=== PATIENT | female | born 1945 | race Two or more races ===

== ENCOUNTER 2025-01-08 06:20 | Inpatient (IN) | payer MEDICARE, OTHER, SELFPAY ==
[2024-12-29 09:21] VITALS: BMI 35.7
[2024-12-29 10:10] LABS: Hematocrit 46.0 % (37.0-47.0); Hemoglobin 14.4 g/dL (12.0-16.0); Mean Corp Hgb Conc. 31.3 g/dL (33.0-37.0); Mean Corpuscular Volume 85.2 fL (81.0-99.0); Nucleated Red Blood Cells % 0 %; Platelet Count 202 10^3/uL (130-400); Red Cell Dist. Width 16.0 % (11.5-14.5)
[2024-12-29 10:23] LABS: INR 0.93; PT 12.8 Sec (11.4-14.6)
[2024-12-29 10:25] LABS: APTT 27.4 Sec (23.4-35.0)
[2024-12-29 10:36] LABS: Blood Urea Nitrogen 30 mg/dl (7-17); Calcium 9.4 mg/dl (8.4-10.2); Carbon Dioxide 24 mmol/L (22-30); Chloride 105 mmol/L (98-107); Estimated Creatinine Clearance 39 ml/min; Glucose 94 mg/dl (70-99); Potassium 5.3 mmol/L (3.5-5.1); Sodium 138 mmol/L (135-145); eGFR 51.43
--- NOTE | 2025-01-03 13:24 | PTCARENOTE ---
Abn Lab, Creatinine 1.1, Jaylin at Dr Sanchez's office made aware.
[2025-01-08] VITALS (13 sets, daily range): BP systolic 0–175; BP diastolic 54–100; BMI 35.4
--- NOTE | 2025-01-08 07:11 | HP.FOC2 ---
Focused History & Physical
Chief Complaint
HPI:
Chief Complaint: Peripheral arterial disease, claudication
HPI / Indication for Planned Procedure: This is 79-year-old female with significant past medical history for peripheral arterial disease, COPD, diabetes, blind in right eye, incontinence, and hypertension who presents to [facility] for scheduled RIGHT common femoral endarterectomy, profundoplasty, endarterectomized SFA versus vein for patch, and prophylactic sartorius muscle flap with Dr. Jeyson Sanchez III. Patient denies recent illness, trauma, or hospitalization.
Denies cough, chills, fever, vomiting, abdominal pain, shortness of breath, chest pain, loose stool, and recent medication changes. Endorses she is at baseline health.
Relevant Past Medical History: Other (peripheral arterial disease, COPD, diabetes, blind in right eye, incontinence, and hypertension)
Relevant Social History: Negative (Former smoker)
Relevant Past Surgical History: Positive for (Aortogram, right knee surgery, multiple back surgeries, gallbladder surgery)
Review of Systems
Review of Pertinent Systems: All Systems Negative
Medication
See Medication form for detailed medications: Yes
Medication List (including Herbals & OTC):
cilostazol 100 mg tablet 100 mg PO BID 12/27/24
gabapentin 300 mg capsule 300 mg PO BID 12/27/24
glimepiride 2 mg tablet 2 mg PO DAILY 12/27/24
metformin 1,000 mg tablet 1,000 mg PO BIDWMEAL 12/27/24
montelukast 10 mg tablet 10 mg PO DAILY 12/27/24
prednisolone acetate (PF) 1 % eye drops,suspension 1 drp RIGHT EYE Q48H 12/27/24
valsartan 40 mg tablet 40 mg PO DAILY 12/27/24
aspirin 81 mg chewable tablet 81 mg PO DAILY 01/08/25
brimonidine 0.2 % eye drops 1 drp ophthalmic (eye) BID 01/08/25
empagliflozin 25 mg-linagliptin 5 mg tablet (Glyxambi) 1 tab PO DAILY 01/08/25
meclizine 12.5 mg tablet 12.5 mg PO TID 01/08/25
Medications Reviewed: Yes
Allergies and Reactions
Patient has Allergies: Yes
Noted Allergies and Reactions:
Allergy/AdvReac Type Severity Reaction Status Date / Time
codeine Allergy Severe Verified 01/08/25 06:33
Nausea/vomiting/dizziness
Pertinent Physical Exam
All Other Systems: Negative
Head/Neck: Normal
Lungs: Normal (Bilateral lungs clear to auscultation)
Heart: Normal (No murmurs, RRR)
Abdomen: Normal (Nontender nondistended, rotund)
Extremities: Other (Bilateral radial pulse +2)
Neurological: Normal
Diagnosis / Assessment
Assessment: 79-year-old female with peripheral arterial disease and claudication
Plan / Procedure
Plan: Will proceed with scheduled right common femoral endarterectomy with Dr. Jeyson Sanchez III
[2025-01-08] MEDS: BACTROBAN NASAL 1 GRAM NASAL (07:13)
[2025-01-08] MEDS: NSS 500 IV (07:14)
[2025-01-08] MEDS: PERIDEX 0.12% ORAL RINSE 15 ML PO (07:14)
[2025-01-08 07:17] LABS: Glucose - Point of Care 137 mg/dl (70-99)
--- NOTE | 2025-01-08 07:17 | W.SUR.PREOP ---
Pre-Operative Surgical Note
-
I have examined this patient prior to the performance of the scheduled procedure.
The patient's condition is unchanged from the time of the current History and
Physical and the patient is able to undergo the scheduled procedure.
[2025-01-08 09:11] LABS: ACT-LR - POC 351 Seconds (116-155)
[2025-01-08 09:18] LABS: Glucose - Point of Care 144 mg/dl (70-99)
[2025-01-08 10:05] LABS: ACT-LR - POC 266 Seconds (116-155)
[2025-01-08 10:12] LABS: Glucose - Point of Care 180 mg/dl (70-99)
--- NOTE | 2025-01-08 11:22 | OR.RPT ---
Operative Report
Operative Report
Date of Operation: 01/08/2025
Pre Op Diagnosis: Debilitating right lower extremity claudication
Post Op Diagnosis: Debilitating right lower extremity claudication
Procedure:
1. Right common femoral endarterectomy and profunda femoral artery endarterectomy with patch angioplasty using endarterectomized superficial femoral artery
2. Rotational sartorius muscle flap coverage
Surgeon: Jeyson Sanchez III, MD
Business Intelligence Manager: Lizbet Boo MD PGY-4
Anesthesia: General
Complications: None
Estimated Blood Loss: 50 cc
History and Indications for Procedure: 79-year-old obese female with debilitating right lower extremity claudication. Preoperative cross-sectional imaging demonstrated heavily calcified occlusive disease in the right common femoral artery, proximal
profundofemoral artery. She has a chronically occluded superficial femoral artery on the right. She provided a history of multiple previous surgical site infections and therefore I recommended that we minimize the risk of serious infection from
this procedure by using endarterectomized superficial femoral artery along with prophylactic sartorius muscle flap coverage.
Procedure in Detail: Tamar Enciso was correctly identified and placed supine on the operating table. Using ultrasound guidance we identified the right common femoral artery, femoral bifurcation and proximal superficial femoral artery in the
right groin. An appropriate incision was marked at the skin level. After adequate induction of anesthesia, the abdomen, pelvis, right groin and thigh were prepped and draped in usual sterile fashion. Preoperative antibiotics were administered. A
time-out procedure was performed with the nursing and anesthesia staff confirming the patient's identity as well as the nature and laterality of the procedure. I made a vertical incision over the right groin. Electrocautery was used to dissect the
subcutaneous tissue. Lymphatics were ligated and divided between silk ties and metal clips. Through a combination of sharp dissection and electrocautery, I identified the common femoral artery. I continued dissection under the inguinal ligament.
The distal external iliac artery was soft and free of calcium by palpation. The distal right external iliac artery was encircled with a vessel loop underneath the inguinal ligament at a spot free of disease by palpation. Dissection was then
continued distally. The femoral bifurcation was identified as well as the proximal superficial femoral artery and profunda femoral artery. Dissection on the profunda femoral artery was carried to the first branch point. The first two branches were
then individually controlled with vessel loops. I exposed and circumferentially dissected and adequate length of about 8 to 9 cm of the chronically occluded proximal superficial femoral artery. This would later be used for patch angioplasty.
The patient was systemically heparinized. After confirming an adequate ACT we proceeded with the endarterectomy. The proximal and distal vessel loops were secured. I placed a Derra clamp on the distal right external iliac artery and then loosened
the proximal vessel loop. An 11-blade and Monteiro scissors were used to make and extend the arteriotomy on the common femoral artery. The arteriotomy was carried distally to the proximal profunda femoral artery. The arteriotomy was extended up to
the proximal common femoral artery. An endarterectomy was performed in the standard fashion with a [place] elevator. The proximal extent of the plaque was transected and then additional elements of plaque were pulled out from the distal external
iliac artery using forceps and clamps. The distal end of the plaque was everted from the profunda femoral artery. No distal intimal flap was identified. The plaque extending into the proximal superficial femoral artery was everted. The
endarterectomy plane was then irrigated with heparinized saline solution and any loose fronds of tissue were removed. I then ligated the proximal and distal ends of the exposed segment of occluded superficial femoral artery with silk ties. The
intervening segment was transected and removed. I opened the length of the occluded superficial femoral artery with Monteiro scissors. An endarterectomy was performed on the length of superficial femoral artery. The endarterectomized SFA segment was
irrigated with heparinized saline solution and any loose fronds of tissue were removed. The endarterectomized SFA patch was then sewn in place using a running 6-0 Prolene suture. Prior to the completion of the anastomosis we allowed the arteries
to forward bleed and backbleed temporarily. The area under the patch was irrigated with heparinized saline solution. The anastomosis was then completed. The proximal clamp and distal vessel loops were then released. There was an excellent pulse
that was easily palpable in the common femoral artery and proximal profunda femoral artery. Robust and easily audible Doppler signals were confirmed in the profunda femoral artery branch outflow. The suture line was closely inspected for
hemostasis which was achieved.
Heparin was reversed with protamine. The wound was irrigated with copious amounts of warm saline solution. Hemostasis was achieved within the wound bed. The sartorius muscle was identified towards the inferior aspect of the wound. Using
electrocautery and blunt dissection I then exposed the entire sartorius muscle in the wound bed back to its insertion at the anterior superior iliac spine. The sartorius muscle was divided at its insertion point with electrocautery. The sartorius
muscle was then gently mobilized taking great care not to disrupt or injure any perforating branches. The sartorius muscle was carefully and adequately mobilized to cover the vascular repair. The sartorius muscle was then anchored in place to the
surrounding tissue with interrupted 3-0 Vicryl sutures in a horizontal mattress fashion. The muscle was healthy in appearance and under no tension. Two #10 ROLDAN drains were left in place. The lateral drain was left in the sartorius bed. The more
medial drain was left on top of the sartorius muscle flap. Both drains were secured in place at the skin exit sites with Nylon sutures.
The wound was once again irrigated with saline solution. The wound was inspected for hemostasis which was achieved. The wound was then closed in multiple layers and a sterile APARNA dressing was applied. The ROLDAN drains were connected to closed bulb
suction.
The patient tolerated the procedure well and was taken to the recovery room in good condition.
Attestation: I was present and responsible for the entire procedure
Signed:
Jeyson Sanchez III, MD
Vascular Surgery
[facility]
[2025-01-08 11:26] LABS: Glucose - Point of Care 188 mg/dl (70-99)
[2025-01-08 11:43] LABS: Hematocrit 43.2 % (37.0-47.0); Hemoglobin 13.5 g/dL (12.0-16.0); Mean Corp Hgb Conc. 31.3 g/dL (33.0-37.0); Mean Corpuscular Volume 84.7 fL (81.0-99.0); Platelet Count 182 10^3/uL (130-400); Red Cell Dist. Width 15.7 % (11.5-14.5)
[2025-01-08 11:58] LABS: Blood Urea Nitrogen 26 mg/dl (7-17); Calcium 8.1 mg/dl (8.4-10.2); Carbon Dioxide 21 mmol/L (22-30); Chloride 109 mmol/L (98-107); Estimated Creatinine Clearance 38 ml/min; Glucose 195 mg/dl (70-99); Potassium 4.6 mmol/L (3.5-5.1); Sodium 135 mmol/L (135-145); eGFR 51.43
[2025-01-08] MEDS: SUBLIMAZE 25 MCG IV (12:06)
[2025-01-08] MEDS: NSS 1000 IV (12:37)
[2025-01-08] MEDS: OFIRMEV 100 IV (12:38)
[2025-01-08] MEDS: DILAUDID 0.5 MG IV ×2 (13:30→17:33)
[2025-01-08 13:59] LABS: Glucose - Point of Care 154 mg/dl (70-99)
[2025-01-08] MEDS: NOVOLOG FLEXPEN-MODERATE RESISTANCE SC (14:33)
--- NOTE | 2025-01-08 14:40 | CON.INTV ---
Consultation
Consultation Request
Date/Time Consultation Requested: 01/08
Date/Time Consultation Performed: 01/08
Requesting Provider: LAVELL Madison
Performing Provider: Dr. Gregory; Dr. Wynn
Medical History
-
Chief Complaint: PAD, claudication (postop)
History of Present Illness:
Patient is a 79-year-old female with PMH of PAD, COPD, NIDDM, HTN, R eye blindness, and incontinence who is being seen in the ICU following vascular surgery in her right leg. Specifically, this morning patient underwent R SMOKE CHASER endarterectomy, R
profunda femoral endarterectomy with patch angioplasty using SFA endarterectomy, and sartorius muscle flap. Patient is having upper right leg pain, though she is otherwise feeling well after the procedure. Denies chest pain, shortness of breath,
N/V/D, weakness, or numbness. Patient has a 48-ogng-aewb smoking history, though she quit 6-1/2 years ago. No oxygen at home. No blood thinners at home.
Past Medical History
Past Medical History: COPD, HTN, NIDDM, Valvular Disease and Other (R eye blindness; incontinence)
Past Surgical History: Other (Aortogram, right knee surgery, back surgeries, gallbladder surgery)
Social History
Tobacco: Former Smoker
Allergies / Home Medications
Allergies
Allergy/AdvReac Type Severity Reaction Status Date / Time
codeine Allergy Severe Verified 01/08/25 06:33
Nausea/vomiting/dizziness
Home Medications
�Medication �Instructions �Recorded �Confirmed �Last Taken �Type
cilostazol 100 mg tablet 100 mg PO BID Blood Clot 12/27/24 01/08/25 01/07/25 18:00 History
Prevention/Tx
gabapentin 300 mg capsule 300 mg PO BID Pain 12/27/24 01/08/25 01/07/25 08:00 History
glimepiride 2 mg tablet 2 mg PO DAILY Diabetes 12/27/24 01/08/25 01/06/25 08:00 History
metformin 1,000 mg tablet 1,000 mg PO BIDWMEAL Diabetes 12/27/24 01/08/25 01/06/25 08:00 History
montelukast 10 mg tablet 10 mg PO DAILY Allergies 12/27/24 01/08/25 01/07/25 18:00 History
prednisolone acetate (PF) 1 % eye 1 drp RIGHT EYE Q48H Eye Condition 12/27/24 01/08/25 01/08/25 06:00 History
drops,suspension
valsartan 40 mg tablet 40 mg PO DAILY Blood Pressure 12/27/24 01/08/25 01/07/25 08:00 History
aspirin 81 mg chewable tablet 81 mg PO DAILY Blood Clot 01/08/25 01/08/25 01/07/25 08:00 History
Prevention/Tx
brimonidine 0.2 % eye drops 1 drp ophthalmic (eye) BID Eye 01/08/25 01/08/25 01/08/25 06:00 History
Condition
empagliflozin 25 mg-linagliptin 5 1 tab PO DAILY Diabetes 01/08/25 01/08/25 01/05/25 08:00 History
mg tablet (Glyxambi)
meclizine 12.5 mg tablet 12.5 mg PO TID Neurological 01/08/25 01/08/25 01/07/25 08:00 History
Condition
Review of Systems
-
History Source: Patient
Respiratory: Other (No trouble breathing)
Cardiac: Other (Denies chest pain)
Abdomen/GI: Other (Denies abdominal pain, nausea, vomiting, diarrhea)
Musculoskeletal: Other (Upper right leg pain s/p surgery)
Neuro: Other (No weakness or numbness)
Vitals / Labs / Diagnostic Testing
Vital Signs
Temp Pulse Resp BP Pulse Ox
97.5 F 86 18 133/54 93
01/08/25 12:42 01/08/25 14:00 01/08/25 14:00 01/08/25 13:09 01/08/25 14:29
Lab Data
01/08/25 11:34
01/08/25 11:34
Diagnostic Testing:
Physical Exam
-
HEENT: Normocephalic
Cardiovascular: S1/S2, Regular Rhythm, Other (No M/R/G; no peripheral edema) and Other (Surgical site bandages in place without surrounding erythema, bleeding, ecchymoses, fluctuance, or TTP; good capillary refill bilateral lower extremities; 2 ROLDAN
drains draining small amount of serosanguineous fluid)
Respiratory: Clear and Other (No wheezes, crackles, or rhonchi)
GI: Soft, Non Distended and Non Tender
Neurology: Awake, AO x 3 and Other (Motor, sensory intact in bilateral lower extremities)
Skin: Warm, Dry and Good Color
Assessment
-
Assessment: Patient is a 71-year-old female with PMH of PAD, COPD, diabetes, and HTN who is undergoing postoperative management in the ICU following R SMOKE CHASER endarterectomy, right profunda femoral endarterectomy with patch angioplasty using SFA
endarterectomy, and sartorius muscle flap. Patient is having some pain in her upper right leg following surgery, this seems to be an appropriate level of pain given the circumstance. Surgical site is clean, dry, and intact with no signs of
external bleeding or hematoma. Patient's motor, sensation are intact in bilateral lower extremities with warmth, no pallor or cyanosis, and good capillary refill bilaterally. Patient is afebrile with HR in the 80s and stable BP postoperatively.
Since surgery, patient has been intermittently mildly tachypneic to low 20s with saturations in the low 90s while on supplemental O2 (currently 6 L), though she denies shortness of breath. Two ROLDAN drains in place at the surgical site, draining small
amount of serosanguineous fluid. Right arterial line in place.
Plan:
#R SMOKE CHASER endarterectomy
#R profunda femoral endarterectomy with patch angioplasty
#Sartorius muscle flap
#Peripheral arterial disease
Continue home aspirin
Pain control, as follows:
- Acetaminophen scheduled
- Oxycodone 5 mg p.o. every 4 hours as needed
- Hydromorphone 0.5 mg IV every 4 hours as needed for breakthrough pain
Neurovascular checks, surgical site checks, vitals, per vascular surgery
Per vascular surgery, maintain SBP >100, <165
Patient follows with manager ems (Dr. Tellez)
#Diabetes
Continue home medications
Continue moderate resistance SSI
#COPD
Patient currently on 6 L and saturating in the low 90s; wean O2 as tolerated
CXR from 12/29 showed signs of hyperinflation consistent with history of COPD, 45-[id number]-pgza history
Patient will be provided patient support associate contact info, as she does not currently follow with one
#HTN
Continue home medications
Per vascular surgery, maintain SBP >100, <165
Diet: Diabetic
DVT PPx: SQH
[2025-01-08] MEDS: NOVOLOG FLEXPEN-MODERATE RESISTANCE 3 UNITS SC (16:56)
[2025-01-08] MEDS: HEPARIN 5000 UNITS SC (16:56)
[2025-01-08 17:14] LABS: Glucose - Point of Care 201 mg/dl (70-99)
[2025-01-08] MEDS: NEURONTIN 300 MG PO (19:45)
[2025-01-08] MEDS: ALPHAGAN 0.2% EYE DROPS 1 DROP RIGHT EYE (19:45)
[2025-01-08] MEDS: TYLENOL 650 MG PO (19:46)
[2025-01-09] VITALS (20 sets, daily range): BP systolic 80–144; BP diastolic 40–92; BMI 37.3
--- NOTE | 2025-01-09 00:14 | PTCARENOTE ---
Pt received at 19:00. Initial assessment as documented. Pt adjusted in bed, however remains on L side as she refuses to turn to R or supine. R thigh ROLDAN drains with small amount of serosanguineous drainage. R groin APARNA dressing CDI with seal
maintained. B/L DP and PT by doppler. Safe environment maintained, call ramos within reach. Declining repositioning at this time despite education.
[2025-01-09] MEDS: NSS 1000 IV (00:20)
[2025-01-09] MEDS: HEPARIN 5000 UNITS SC ×3 (00:20→16:12)
[2025-01-09] MEDS: TYLENOL PO ×2 (00:24→14:08)
[2025-01-09 03:59] LABS: Hematocrit 39.1 % (37.0-47.0); Hemoglobin 12.3 g/dL (12.0-16.0); Mean Corp Hgb Conc. 31.5 g/dL (33.0-37.0); Mean Corpuscular Volume 85.9 fL (81.0-99.0); Platelet Count 174 10^3/uL (130-400); Red Cell Dist. Width 16.0 % (11.5-14.5)
[2025-01-09 04:10] LABS: INR 1.16; PT 15.0 Sec (11.4-14.6)
[2025-01-09 04:11] LABS: APTT 33.0 Sec (23.4-35.0)
[2025-01-09 04:18] LABS: Blood Urea Nitrogen 24 mg/dl (7-17); Calcium 7.8 mg/dl (8.4-10.2); Carbon Dioxide 22 mmol/L (22-30); Chloride 111 mmol/L (98-107); Estimated Creatinine Clearance 42 ml/min; Glucose 109 mg/dl (70-99); Potassium 4.2 mmol/L (3.5-5.1); Sodium 137 mmol/L (135-145); eGFR 57.66
[2025-01-09] MEDS: TYLENOL 650 MG PO ×4 (05:13→20:24)
--- NOTE | 2025-01-09 05:31 | PTCARENOTE ---
Pt stated pain with repositioning, scheduled tylenol given as ordered. Pt did not want to take further pain medication at this time. Safe environment maintained, call ramos within reach.
[2025-01-09 07:26] LABS: Glycohemoglobin (HgbA1c) 6.7 % (4.0-5.9)
[2025-01-09] MEDS: NOVOLOG FLEXPEN-MODERATE RESISTANCE SC ×3 (07:27→17:37)
[2025-01-09 07:36] LABS: Glucose - Point of Care 110 mg/dl (70-99)
[2025-01-09] MEDS: ROXICODONE 5 MG PO ×3 (07:57→20:24)
[2025-01-09] MEDS: DIOVAN 40 MG PO (07:58)
[2025-01-09] MEDS: GLUCOPHAGE 1000 MG PO ×2 (07:58→16:12)
[2025-01-09] MEDS: FARXIGA 10 MG PO (07:58)
[2025-01-09] MEDS: AMARYL 2 MG PO (07:58)
[2025-01-09] MEDS: NEURONTIN 300 MG PO ×2 (07:58→20:24)
[2025-01-09] MEDS: SINGULAIR 10 MG PO (07:58)
[2025-01-09] MEDS: LOW STRENGTH ASPIRIN 81 MG PO (07:58)
[2025-01-09] MEDS: JANUVIA 100 MG PO (07:58)
[2025-01-09] MEDS: ALPHAGAN 0.2% EYE DROPS 1 DROP RIGHT EYE ×2 (07:59→20:23)
--- NOTE | 2025-01-09 07:59 | W.PN.VS ---
Addendum entered and electronically signed by Jeyson Sanchez III, MD 01/09/25 14:31:
This patient was seen and examined in collaboration with LAVELL Marie. I agree with the history and physical exam as well as the assessment and plan. I have the following additions:
Remains on bedrest after right sartorius flap
Comfortable with no complaints
Right groin incision clean and dry
Right foot is warm with robust Doppler signals
Off bedrest 01/10/2025 afternoon
Antiplatelet therapy
DVT prophylaxis
Signed:
Jeyson Sanchez III, MD
Vascular Surgery
[facility]
Original Note:
Today's Communication / Plan
-
Plan reviewed with on-call attending.
Assessment/Plan
-
Assessment: 71-year-old female POD #1 Right common femoral endarterectomy and profunda femoral artery endarterectomy with patch angioplasty using endarterectomized superficial femoral artery and rotational sartorius muscle flap coverage
Plan:
Patient should remain on bedrest for an additional 24 hours giving time for muscle flap to adhere
Will remove Sanchez catheter a.m. of postop day #2
Discontinue IV fluids
Discontinue arterial line
Continue neurovascular checks
Continue DVT prophylaxis
Continue antiplatelet of aspirin 81 mg p.o. daily
Will initiate statin for peripheral arterial disease medical management
Subjective Data
-
Date of Service: January 09, 2025
Patient seen and examined at bedside, reports adequate postoperative pain management with current as needed pain medication regimen. Denies nausea, vomiting, fever, and chills.
Objective Data
-
Vital Signs
Temp Pulse Resp BP Pulse Ox
97.7 F 78 20 106/57 91
01/09/25 07:26 01/09/25 07:00 01/09/25 07:00 01/09/25 00:00 01/09/25 07:00
Intake and Output
01/08/25 01/09/25 01/10/25
06:59 06:59 06:59
Intake Total 1590 / 1670 80 / 80
Output Total 1345 / 1345
Balance 245 / 325 80 / 80
Intake:
IV fluids (Total) 1590 / 1670 80 / 80
Normosol 150 / 150
Nss 1,000 ml @ 80 mls/hr IV . 1440 / 1520 80 / 80
[id number] ANNETTE Rx#:[id number]
Output:
Drain Output (Total) 120 / 120
Right Serafin-Parikh A 55 / 55
Right Serafin-Parikh B 65 / 65
Urine, Sanchez 1225 / 1225
Lab Results
01/09/25 03:47
01/09/25 03:47
Calcium 7.8 mg/dl (8.4-10.2) L 01/09/25 03:47
Physical Exam
-
No apparent distress, resting in bed comfortably
No tachycardia
No dyspnea on room air
ABD rotund, nondistended, nontender
Right groin blanco dressing clean, dry, and intact, ROLDAN x 2 site clean, dry, and intact with minimal serosanguineous output
Right DP Doppler signal, right foot warm
Sanchez catheter draining clear urine
--- NOTE | 2025-01-09 08:22 | W.PN.INTV ---
Today's Communication / Plan
Recommendations
Arterial line, IVF's discontinued this morning
Pain control scheduled and PRN
Wean supplemental oxygen as tolerated
DuoNebs PRN
Continue home medications
Assessment
-
Assessment: Patient is a 71-year-old female with PMH of PAD, COPD, diabetes, and HTN who is undergoing postoperative management in the ICU following R YEAST FERMENTATION ATTENDANT endarterectomy, right profunda femoral endarterectomy with patch angioplasty using SFA
endarterectomy, and sartorius muscle flap. Patient is having some pain in her upper right leg following surgery, this seems to be an appropriate level of pain given the circumstance. Surgical site is clean, dry, and intact with no signs of
external bleeding or hematoma. Patient's motor, sensation are intact in bilateral lower extremities with warmth, no pallor or cyanosis, and good capillary refill bilaterally. Patient is afebrile with HR in the 80s and stable BP postoperatively.
Since surgery, patient has been intermittently mildly tachypneic to low 20s with saturations in the low 90s while on supplemental O2 (currently 6 L), though she denies shortness of breath. Two ROLDAN drains in place at the surgical site, draining small
amount of serosanguineous fluid. Right arterial line in place.
12/2: HD #2, POD #1. Patient hemodynamically stable with lower extremity pulses present on Doppler overnight. Surgical site shows no signs of bleeding or infection. Small serosanguineous output from ROLDAN drains x 2. Patient has continued pain, but
she just received 5 mg oxycodone. Sugars well-controlled. Currently on 3 L O2, satting 91% but without shortness of breath. Urine output approximately 50 mL/h. Labs unremarkable this morning.
Plan:
#R YEAST FERMENTATION ATTENDANT endarterectomy
#R profunda femoral endarterectomy with patch angioplasty
#Sartorius muscle flap
#Peripheral arterial disease
Continue home aspirin
Atorvastatin, per vascular surgery
Pain control with goal RASS 0 to +1, as follows:
- Acetaminophen scheduled
- Oxycodone 5 mg p.o. every 4 hours as needed
- Hydromorphone 0.5 mg IV every 4 hours as needed for breakthrough pain
Neurovascular checks, surgical site checks, vitals, per vascular surgery
Per vascular surgery, maintain SBP >100, <165
Patient follows with arts education teacher (Dr. Tellez)
#Diabetes
Sugars currently well-controlled
Continue home medications
Continue moderate resistance SSI
#Hypoxia
#Significant smoking history
Patient currently on 3 L and saturating in the low 90s; wean O2 as tolerated
Continue home montelukast
CXR from 12/29 showed signs of hyperinflation consistent with history of COPD, 81-icnm-uhmp history
Patient will be provided lead press operator contact info, as she does not currently follow with one
Start DuoNebs PRN
Encourage incentive spirometry
Consider CXR tomorrow if unable to wean off oxygen
#HTN
Continue home medications
Per vascular surgery, maintain SBP >100, <165; patient has been within parameters postoperatively
Diet: Diabetic
DVT PPx: SQH
Subjective Dataa
Subjective Data
Date of Service:
Date of Service: January 09, 2025
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
Subjective:
Patient seen at the bedside on hospital day #2, POD #1. Patient endorses some right upper leg pain at the surgical site, but it is improved from yesterday. Denies chest pain, shortness of breath, F/F/C, N/V/D, abdominal pain, weakness, or
numbness. No acute events overnight. Last BM was yesterday morning before surgery.
Review of Systems
General: Other (Denies F/F/C; continued right leg pain, though improving)
Cardiopulmonary: Other (Denies shortness of breath or chest pain)
GI: Other (Denies abdominal pain, N/V/D)
Neuro: Other (Denies weakness or numbness)
Objective Data
Data Reviewed
Vital Signs / I&O / Oxygen:
Vital Signs
Temp Pulse Resp BP Pulse Ox
97.7 F 78 20 106/57 91
01/09/25 07:26 01/09/25 07:00 01/09/25 07:00 01/09/25 00:00 01/09/25 07:00
Intake and Output
01/08/25 01/09/25 01/10/25
06:59 06:59 06:59
Intake Total 1590 / 1670 160 / 160
Output Total 1345 / 1345 60 / 60
Balance 245 / 325 100 / 100
SaO2 91
Nasal Cannula flow liters per 4
minute
Physical Exam
General: Pain (Right upper leg surgical site)
HEENT: Normocephalic
Cardiovascular: S1-S2, Regular Rhythm and Other (Surgical site CDI without external bleeding, ecchymoses, or fluctuance; no peripheral edema; no M/R/G; extremities warm, noncyanotic, capillary refill <2 seconds; [address], draining small
amount of serosanguineous fluid)
Respiratory: Clear and Other (No wheezes, crackles, or rhonchi)
GI: Soft, Non Distended and Non Tender
Neurology: Awake and AO x 3
Skin: Warm and Dry
Labs/Micro/Reports
Lab Data
01/09/25 03:47
01/09/25 03:47
Laboratory Results
01/09/25
03:47
PT 15.0 H
INR 1.16
APTT 33.0
[2025-01-09 08:58] LABS: ALT (SGPT) 19 U/L (0-35); AST (SGOT) 21 U/L (14-36); Albumin 3.4 g/dl (3.5-5.0); Alkaline Phosphatase 69 U/L (38-126); Total Protein 5.8 g/dl (6.3-8.2)
[2025-01-09 11:52] LABS: B.E. - POC -7.1 mmol/L; Glucose - POC 214 mg/dl (70-99); HCO3 - POC 19 mmol/L (21-28); Hematocrit - POC 43 % PCV (37-47); Hemodilution- POC Yes; Hemoglobin Calculated - POC 14.5; Ionized Calcium - POC 1.16 mmol/L (1.15-1.33); Lactate - POC 0.86 mmol/L (0.36-0.75); O2 Saturation %Calculated-POC 98.8 % (94-98); PCO2 - POC 39 mmHg (35-48); PO2 - POC 138 mmHg (83-108); Potassium - POC 4.3 mmol/L (3.5-5.1); Sodium - POC 141 mmol/L (136-145); Specimen Type - POC Arterial; pH - POC 7.29 (7.35-7.45)
--- NOTE | 2025-01-09 12:30 | PTCARENOTE ---
A-line and IVF d/c'd per order. Neurovascular checks WNL. Doppler DPs and PTs. Attempted to wean O2 to 2L, SpO2 89%. Now 93% on 3L NC. All other assessments unchanged.
[2025-01-09 12:56] LABS: Glucose - Point of Care 124 mg/dl (70-99)
--- NOTE | 2025-01-09 14:30 | CM ---
I.A: Completed By DIMITRIOS Leavitt
Patient lives in a [address] with 0 RONNY. DME: uses a Rolling Walker and no other DME. No VN/PT nor STR.
PDP: Dr. Gisele Hahn
Pharmacy: [facility] in [place]
Patient has transportation home. Patient here for R HAMMERER HELPER endarterectomy and has 2- ROLDAN drains so will need to see if there is any DC needs for this or see if SNF is needed (however patient is refusing this). PLAN: Home VN/ PT or No Needs.
[2025-01-09] MEDS: LIPITOR 10 MG PO (16:12)
[2025-01-09] MEDS: DILAUDID 0.5 MG IV (17:39)
[2025-01-09 17:42] LABS: Glucose - Point of Care 128 mg/dl (70-99)
[2025-01-10] VITALS (19 sets, daily range): BP systolic 105–147; BP diastolic 51–78; PULSE 90; O2SAT 94; BMI 37.1
[2025-01-10] MEDS: HEPARIN 5000 UNITS SC ×3 (00:12→16:50)
[2025-01-10] MEDS: TYLENOL 650 MG PO ×6 (00:13→20:52)
[2025-01-10] MEDS: ROXICODONE 5 MG PO ×2 (03:06→12:45)
[2025-01-10 03:25] LABS: Hematocrit 38.9 % (37.0-47.0); Hemoglobin 11.9 g/dL (12.0-16.0); Mean Corp Hgb Conc. 30.6 g/dL (33.0-37.0); Mean Corpuscular Volume 85.7 fL (81.0-99.0); Platelet Count 165 10^3/uL (130-400); Red Cell Dist. Width 16.5 % (11.5-14.5)
[2025-01-10 03:53] LABS: Blood Urea Nitrogen 29 mg/dl (7-17); Calcium 8.0 mg/dl (8.4-10.2); Carbon Dioxide 23 mmol/L (22-30); Chloride 111 mmol/L (98-107); Estimated Creatinine Clearance 39 ml/min; Glucose 99 mg/dl (70-99); Potassium 4.4 mmol/L (3.5-5.1); Sodium 135 mmol/L (135-145); eGFR 51.43
--- NOTE | 2025-01-10 05:48 | PTCARENOTE ---
Pt received at 19:00. initial assessment as documented. B/L PT and DP present with doppler. Pt c/o pain 07/18, received PRN oxycodone 5mg--effective. Pt anxious about getting out of bed d/t pain, reassured pt that we are focusing on pain
management/control. Safe environment maintained, call ramos within reach.
[2025-01-10] MEDS: GLUCOPHAGE 1000 MG PO ×2 (08:03→16:56)
[2025-01-10] MEDS: NEURONTIN 300 MG PO ×2 (08:04→20:52)
[2025-01-10] MEDS: DIOVAN 40 MG PO (08:04)
[2025-01-10] MEDS: JANUVIA 100 MG PO (08:04)
[2025-01-10] MEDS: ALPHAGAN 0.2% EYE DROPS 1 DROP RIGHT EYE ×2 (08:04→20:53)
[2025-01-10] MEDS: SINGULAIR 10 MG PO (08:04)
[2025-01-10] MEDS: LOW STRENGTH ASPIRIN 81 MG PO (08:04)
[2025-01-10] MEDS: FARXIGA 10 MG PO (08:04)
[2025-01-10] MEDS: AMARYL 2 MG PO (08:04)
[2025-01-10] MEDS: NOVOLOG FLEXPEN-MODERATE RESISTANCE SC ×3 (08:18→16:57)
--- NOTE | 2025-01-10 08:25 | PTCARENOTE ---
Merari Gomez PERSONALIZED LIVING ASSISTANT assessing patient at bedside, unchanged from prior assessment. Patient is AAOx3, pleasant cooperative. She is sinus rhythm on monitor, on 3L nasal cannula 96%. Patient is ordered diabetic diet, assisted in ordering. Patient has
alberto catheter. plan to get patient OOB this afternoon. Patient was previously using rolling walker. Will consult PT OT.
--- NOTE | 2025-01-10 08:25 | W.PN.INTV ---
Today's Communication / Plan
Recommendations
PT/OT and OOB this afternoon
CXR pending for persistent hypoxemia and supplemental O2 requirement
NS 500 mL bolus given for oliguria, monitor BMP and urine output
Continue pain control, bowel regimen
Plan to downgrade to telemetry this afternoon
Assessment
-
Assessment: Patient is a 71-year-old female with PMH of PAD, COPD, diabetes, and HTN who is undergoing postoperative management in the ICU following R PHY THERAPIST endarterectomy, right profunda femoral endarterectomy with patch angioplasty using SFA
endarterectomy, and sartorius muscle flap. Patient is having some pain in her upper right leg following surgery, this seems to be an appropriate level of pain given the circumstance. Surgical site is clean, dry, and intact with no signs of
external bleeding or hematoma. Patient's motor, sensation are intact in bilateral lower extremities with warmth, no pallor or cyanosis, and good capillary refill bilaterally. Patient is afebrile with HR in the 80s and stable BP postoperatively.
Since surgery, patient has been intermittently mildly tachypneic to low 20s with saturations in the low 90s while on supplemental O2 (currently 6 L), though she denies shortness of breath. Two ROLDAN drains in place at the surgical site, draining small
amount of serosanguineous fluid. Right arterial line in place.
12/2: HD #2, POD #1. Patient hemodynamically stable with lower extremity pulses present on Doppler overnight. Surgical site shows no signs of bleeding or infection. Small serosanguineous output from ROLDAN drains x 2. Patient has continued pain, but
she just received 5 mg oxycodone. Sugars well-controlled. Currently on 3 L O2, satting 91% but without shortness of breath. Urine output approximately 50 mL/h. Labs unremarkable this morning.
12/3: HD #3, POD #2. Patient hemodynamically stable with LE pulses present on Doppler. Surgical site shows no signs of bleeding or infection. Trace serosanguineous output from ROLDAN drains x 2. Pain currently well-controlled, with acetaminophen x 3
and oxycodone x 2 overnight. Sugars well-controlled on home meds, no insulin required. Patient currently satting 96% on 3 L. Reduced to 2 L at bedside and attempt to wean off oxygen. No DuoNebs required overnight. Patient states she has been
using the incentive spirometer regularly since yesterday. Last BM morning of surgery 2 days ago.
Plan:
#R PHY THERAPIST endarterectomy
#R profunda femoral endarterectomy with patch angioplasty
#Sartorius muscle flap
#Peripheral arterial disease
PT/OT, OOB this afternoon (48 hours postop)
Continue home aspirin
Atorvastatin, per vascular surgery
Pain control with goal RASS 0 to +1, as follows:
- Acetaminophen scheduled
- Oxycodone 5 mg p.o. every 4 hours as needed
- Hydromorphone 0.5 mg IV every 4 hours as needed for breakthrough pain
Neurovascular checks, surgical site checks, vitals, per protocol
Per vascular surgery, maintain SBP >100, <165
Patient follows with hair colorist (Dr. Tellez)
#Diabetes
Sugars currently well-controlled
Continue home medications
Continue moderate resistance SSI
#Hypoxia
#Significant smoking history
Patient on 3 L this morning, saturating in the mid 90s; wean O2 as tolerated
Consider ambulatory pulse ox for home O2 eval
Continue home montelukast
CXR from 12/29 showed signs of hyperinflation consistent with history of COPD, [id number] history
Patient will be provided upholstery cleaner contact info, as she does not currently follow with one
Continue DuoNebs PRN
Encourage incentive spirometry
CXR pending
#HTN
Continue home medications
Per vascular surgery, maintain SBP >100, <165; patient has been within parameters postoperatively
#Oliguria
Urine output 30-40 mL/h overnight
Creatinine 1.1, stable at baseline
Will give NS 500 mL bolus
Sanchez to be removed today
Monitor BMP
Bowel regimen: Senna, docusate, PEG
Diet: Diabetic
DVT PPx: SQH
Disposition: Plan to downgrade to telemetry this afternoon
Subjective Dataa
Subjective Data
Date of Service:
Date of Service: January 10, 2025
Chief Complaint: Wood Gouger Follow Up
Subjective:
Patient seen at bedside on HD #3, POD #2. Patient feels 'overall better.' Endorses minimal SOB lying in bed on 3 L. Pain currently well-controlled. Denies chest pain, fever, fatigue, chills, abdominal pain, N/V/D, weakness, or numbness. Patient
is nervous about getting up out of bed. All questions answered.
Review of Systems
General: Other (Denies F/F/C)
Cardiopulmonary: Other (Minimal SOB; denies chest pain)
GI: Other (Denies abdominal pain, nausea, vomiting, diarrhea)
Neuro: Other (Denies weakness, numbness)
Objective Data
Data Reviewed
Vital Signs / I&O / Oxygen:
Vital Signs
Temp Pulse Resp BP Pulse Ox
98.6 F 79 19 147/77 91
01/10/25 07:21 01/10/25 06:00 01/10/25 06:00 01/10/25 08:04 01/10/25 06:00
Intake and Output
01/09/25 01/10/25 01/11/25
06:59 06:59 06:59
Intake Total 1590 / 1670 640 / 640 240 / 240
Output Total 1345 / 1345 715 / 715 315 / 315
Balance 245 / 325 -75 / -75 -75 / -75
SaO2 91
Nasal Cannula flow liters per 3
minute
Physical Exam
General: Pain (Pain currently well-controlled)
HEENT: Normocephalic
Cardiovascular: S1-S2, Regular Rhythm and Other (Surgical site CDI without external bleeding, ecchymoses, or fluctuance; no peripheral edema; no M/R/G; extremities warm, noncyanotic, capillary refill <2 seconds; [address], draining trace
serosanguineous fluid)
Respiratory: Clear and Other (Mild wheezing left posterior lung field)
GI: Soft, Non Distended and Non Tender
Neurology: Awake and AO x 3
Skin: Warm and Dry
Labs/Micro/Reports
Lab Data
01/10/25 03:14
01/10/25 03:14
[2025-01-10 08:30] LABS: Glucose - Point of Care 94 mg/dl (70-99)
--- NOTE | 2025-01-10 09:20 | W.PN.VS ---
Addendum entered and electronically signed by Song Millan MD 01/10/25 11:47:
Seen and examined with ADJUNCT MATHEMATICS INSTRUCTOR. Agree with findings as noted below. No new complaints. Right groin blanco dressing clean dry and intact. No hematoma. Foot warm with dopplerable signal. Plan/as discussed and noted below.
Original Note:
Today's Communication / Plan
-
Below plan reviewed with on-call attending.
Assessment/Plan
-
Assessment: 71-year-old female POD #2 Right common femoral endarterectomy and profunda femoral artery endarterectomy with patch angioplasty using endarterectomized superficial femoral artery and rotational sartorius muscle flap coverage
Plan:
Bedrest lifted starting after 12 PM today, begin with out of bed to chair and progressed ambulation as tolerated
PT/OT eval and consultations this afternoon following bed rest
Discontinue Sanchez catheter
Continue neurovascular checks
Continue DVT prophylaxis
Continue antiplatelet of aspirin 81 mg p.o. daily and newly added statin for medical management of peripheral arterial disease
Can be downgraded to telemetry
Case management consultation to begin home disposition planning
Subjective Data
-
Date of Service: January 10, 2025
Patient seen and examined at bedside, reports difficulty sleeping overnight and intermittent times of increased pain at surgical site otherwise pain is well-managed. Denies nausea, vomiting, fever, and chills.
Objective Data
-
Vital Signs
Temp Pulse Resp BP Pulse Ox
98.6 F 84 24 147/77 94
01/10/25 07:21 01/10/25 08:01 01/10/25 08:01 01/10/25 08:04 01/10/25 08:01
Intake and Output
01/09/25 01/10/25 01/11/25
06:59 06:59 06:59
Intake Total 1590 / 1670 640 / 640 240 / 240
Output Total 1345 / 1345 715 / 715 315 / 315
Balance 245 / 325 -75 / -75 -75 / -75
Intake:
Oral fluids 480 / 480 240 / 240
IV fluids (Total) 1590 / 1670 160 / 160
Normosol 150 / 150
Nss 1,000 ml @ 80 mls/hr IV . 1440 / 1520 160 / 160
[id number] [facility] Rx#:[id number]
Output:
Drain Output (Total) 120 / 120 40 / 40 40 / 40
Right Serafin-Parikh A 55 / 55 20 / 20 20 / 20
Right Serafin-Parikh B 65 / 65 20 / 20 20 20
Urine, Sanchez 1225 / 1225 675 / 675 275 / 275
Lab Results
01/10/25 03:14
01/10/25 03:14
Calcium 8.0 mg/dl (8.4-10.2) L 01/10/25 03:14
Total Bilirubin 0.3 mg/dl (0.2-1.3) 01/09/25 03:47
Direct Bilirubin 0.1 mg/dl (0.0-0.4) 01/09/25 03:47
AST 21 U/L (14-36) 01/09/25 03:47
ALT 19 U/L (0-35) 01/09/25 03:47
Alkaline Phosphatase 69 U/L (38-126) 01/09/25 03:47
Total Protein 5.8 g/dl (6.3-8.2) L 01/09/25 03:47
Albumin 3.4 g/dl (3.5-5.0) L 01/09/25 03:47
Physical Exam
-
No apparent distress, resting in bed comfortably
No tachycardia
No dyspnea on room air
ABD rotund, nondistended, nontender
Right groin blanco dressing clean, dry, and intact, ROLDAN x 2 site clean, dry, and intact with minimal serosanguineous output
Right DP Doppler signal, right foot warm
Sanchez catheter draining clear urine
[2025-01-10] MEDS: PRED FORTE 1% EYE DROPS 1 DROP RIGHT EYE (09:33)
[2025-01-10] MEDS: SENOKOT-S 1 TABLET PO ×2 (12:03→20:52)
[2025-01-10] MEDS: MIRALAX PO (12:03)
[2025-01-10] MEDS: NSS 500 IV (12:04)
[2025-01-10 14:14] LABS: Glucose - Point of Care 84 mg/dl (70-99)
[2025-01-10] MEDS: DILAUDID 0.5 MG IV (14:43)
--- NOTE | 2025-01-10 16:13 | PTCARENOTE ---
Transferred patient to room 2116. report given to Ivy, patient was an assist x2 for tx out of chair. had some difficulty lifting right leg. pain was controlled, stayed in chair for 1 hour prior to transfer. all belongings packed and brought
with patient.
--- NOTE | 2025-01-10 16:48 | CM ---
Transferred to Room 2116. POD # 2 Right common femoral endarterectomy. Off pressors. Remains on O2 2-3L. No O2 at baseline. Discharge POC: Therapy rec for SNF vs PT/OT. Will need home O2 test to determine O2 needs.
[2025-01-10] MEDS: LIPITOR 10 MG PO (16:54)
[2025-01-10 16:57] LABS: Glucose - Point of Care 102 mg/dl (70-99)
--- NOTE | 2025-01-10 18:44 | PTCARENOTE ---
pt received from ICU to room 2116 via bed. assessment as documented. pt oriented to room, environment and plan of care with verbalized understanding. telemetry placed and reading SR/ST 90's. Right groin APARNA drain dressing intact. Right thigh
dsg patent w/ROLDAN drains x 2. care ongoing.
[2025-01-10 21:44] LABS: Glucose - Point of Care 127 mg/dl (70-99)
[2025-01-11] VITALS (9 sets, daily range): BP systolic 133–169; BP diastolic 55–84; PULSE 89; O2SAT 91
[2025-01-11] MEDS: HEPARIN 5000 UNITS SC ×4 (00:48→23:38)
[2025-01-11] MEDS: TYLENOL 650 MG PO ×6 (00:49→23:38)
[2025-01-11] MEDS: TYLENOL PO (04:44)
[2025-01-11 06:22] LABS: Hematocrit 38.0 % (37.0-47.0); Hemoglobin 11.9 g/dL (12.0-16.0); Mean Corp Hgb Conc. 31.3 g/dL (33.0-37.0); Mean Corpuscular Volume 85.2 fL (81.0-99.0); Platelet Count 155 10^3/uL (130-400); Red Cell Dist. Width 16.1 % (11.5-14.5)
[2025-01-11 06:57] LABS: Blood Urea Nitrogen 22 mg/dl (7-17); Calcium 7.8 mg/dl (8.4-10.2); Carbon Dioxide 24 mmol/L (22-30); Chloride 110 mmol/L (98-107); Estimated Creatinine Clearance 43 ml/min; Glucose 83 mg/dl (70-99); Potassium 4.3 mmol/L (3.5-5.1); Sodium 137 mmol/L (135-145); eGFR 57.66
[2025-01-11] MEDS: FARXIGA 10 MG PO (07:46)
[2025-01-11] MEDS: JANUVIA 100 MG PO (07:48)
[2025-01-11] MEDS: GLUCOPHAGE 1000 MG PO ×2 (07:48→17:04)
[2025-01-11] MEDS: LOW STRENGTH ASPIRIN 81 MG PO (07:48)
[2025-01-11] MEDS: DIOVAN 40 MG PO (07:48)
[2025-01-11] MEDS: AMARYL 2 MG PO (07:49)
[2025-01-11] MEDS: SENOKOT-S 1 TABLET PO ×2 (07:49→19:50)
[2025-01-11] MEDS: SINGULAIR 10 MG PO (07:49)
[2025-01-11] MEDS: NEURONTIN 300 MG PO ×2 (07:49→19:50)
[2025-01-11] MEDS: ALPHAGAN 0.2% EYE DROPS 1 DROP RIGHT EYE ×2 (07:51→19:51)
[2025-01-11 07:54] LABS: Glucose - Point of Care 79 mg/dl (70-99)
[2025-01-11] MEDS: NOVOLOG FLEXPEN-MODERATE RESISTANCE SC ×3 (07:56→16:55)
[2025-01-11] MEDS: MIRALAX PO (07:57)
[2025-01-11 09:27] LABS: Magnesium 2.1 mg/dl (1.6-2.3)
[2025-01-11 11:30] LABS: Glucose - Point of Care 107 mg/dl (70-99)
--- NOTE | 2025-01-11 11:50 | W.PN.VS ---
Addendum entered and electronically signed by Song Millan MD 01/11/25 16:36:
Seen and examined with CRUDE OIL TREATER. Agree with findings and plan as discussed and noted below.
Original Note:
Today's Communication / Plan
-
Patient seen and examined at bedside with Dr. Song Millan M.D., below plan reviewed with attending.
Assessment/Plan
-
Assessment: 71-year-old female POD #3 Right common femoral endarterectomy and profunda femoral artery endarterectomy with patch angioplasty using endarterectomized superficial femoral artery and rotational sartorius muscle flap coverage
Plan:
Continue PT/OT, will ask PT to evaluate again today as patient is requesting reevaluation prior to official recommendations for home disposition
Continue neurovascular checks
Continue DVT prophylaxis
Continue antiplatelet of aspirin 81 mg p.o. daily and newly added statin for medical management of peripheral arterial disease
Case management consultation to begin home disposition planning
Anticipate discharge tomorrow home versus SNF (if patient is agreeable)
Subjective Data
-
Date of Service: January 11, 2025
Patient seen and examined at bedside, offers no complaints. Reports adequate postoperative pain management. Denies nausea, vomiting, fever, and chills. Endorses eagerness for discharge to home, at this time refusing any suggestions of skilled
nursing facility for possible disposition following hospital.
Objective Data
-
Vital Signs
Temp Pulse Resp BP Pulse Ox
98 F 89 18 143/60 93
01/11/25 11:49 01/11/25 11:49 01/11/25 11:49 01/11/25 11:49 01/11/25 11:49
Intake and Output
01/10/25 01/11/25 01/12/25
06:59 06:59 06:59
Intake Total 640 / 640 480 / 480 360 / 360
Output Total 715 / 715 705 / 705
Balance -75 / -75 -225 / -225 360 / 360
Intake:
Oral fluids 480 / 480 480 / 480 360 / 360
IV fluids (Total) 160 / 160
Nss 1,000 ml @ 80 mls/hr IV . 160 / 160
[id number] [facility] Rx#:[id number]
Output:
Drain Output (Total) 40 / 40 130 / 130
Right Serafin-Parikh A 70 / 70
Right Serafin-Parikh B 60 / 60
Urine, Sanchez 675 / 675 575 / 575
Other:
How many times incontinent 1
MODERATE amount urine
How many times incontinent 2
SATURATED amount urine
Number of approximated MODERATE 1
amounts of urine
Lab Results
01/11/25 05:24
01/11/25 05:24
Calcium 7.8 mg/dl (8.4-10.2) L 01/11/25 05:24
Magnesium 2.1 mg/dl (1.6-2.3) 01/11/25 05:24
Total Bilirubin 0.3 mg/dl (0.2-1.3) 01/09/25 03:47
Direct Bilirubin 0.1 mg/dl (0.0-0.4) 01/09/25 03:47
AST 21 U/L (14-36) 01/09/25 03:47
ALT 19 U/L (0-35) 01/09/25 03:47
Alkaline Phosphatase 69 U/L (38-126) 01/09/25 03:47
Total Protein 5.8 g/dl (6.3-8.2) L 01/09/25 03:47
Albumin 3.4 g/dl (3.5-5.0) L 01/09/25 03:47
Physical Exam
-
No apparent distress, resting in bed comfortably
No tachycardia
No dyspnea on room air
ABD rotund, nondistended, nontender
Right groin blanco dressing clean, dry, and intact, ROLDAN x 2 site clean, dry, and intact with minimal serosanguineous output
Right DP Doppler signal, right foot warm
--- NOTE | 2025-01-11 16:44 | CM ---
Met with patient who called her dgtr Mallory to help with SNF ideas. CM gave Mallory information on [email or web address] [place] compare. Mallory and patient agreed on referrals to [facility] [place] [facility], [facility], [facility], [facility], and
[facility]. Referrals sent with TIGIST attached in [facility].
[2025-01-11 16:54] LABS: Glucose - Point of Care 124 mg/dl (70-99)
[2025-01-11] MEDS: LIPITOR 10 MG PO (17:04)
[2025-01-11 21:20] LABS: Glucose - Point of Care 73 mg/dl (70-99)
[2025-01-12 03:16] VITALS: BP 132/65
[2025-01-12] MEDS: TYLENOL PO (04:49)
[2025-01-12 08:00] VITALS: BP 183/86
[2025-01-12 08:55] LABS: Glucose - Point of Care 110 mg/dl (70-99)
[2025-01-12] MEDS: NOVOLOG FLEXPEN-MODERATE RESISTANCE SC ×3 (08:55→16:19)
[2025-01-12] MEDS: NEURONTIN 300 MG PO (09:09)
[2025-01-12] MEDS: AMARYL 2 MG PO (09:09)
[2025-01-12] MEDS: SENOKOT-S 1 TABLET PO (09:09)
[2025-01-12] MEDS: TYLENOL 650 MG PO ×3 (09:09→15:24)
[2025-01-12] MEDS: GLUCOPHAGE 1000 MG PO ×2 (09:09→16:19)
[2025-01-12] MEDS: DIOVAN 40 MG PO (09:09)
[2025-01-12] MEDS: JANUVIA 100 MG PO (09:09)
[2025-01-12] MEDS: ALPHAGAN 0.2% EYE DROPS 1 DROP RIGHT EYE (09:10)
[2025-01-12] MEDS: LOW STRENGTH ASPIRIN 81 MG PO (09:10)
[2025-01-12] MEDS: FARXIGA 10 MG PO (09:10)
[2025-01-12] MEDS: SINGULAIR 10 MG PO (09:10)
[2025-01-12] MEDS: HEPARIN 5000 UNITS SC ×2 (09:10→15:24)
[2025-01-12] MEDS: MIRALAX 17 GRAMS PO (09:10)
[2025-01-12] MEDS: PRED FORTE 1% EYE DROPS 1 DROP RIGHT EYE (09:11)
--- NOTE | 2025-01-12 09:52 | W.PN.VS ---
Addendum entered and electronically signed by Jeyson Sanchez III, MD 01/12/25 14:05:
This patient was seen and examined in collaboration with LAVELL Mathias. I agree with the history and physical exam as well as the assessment and plan. I have the following additions:
Looks great
Has some hip flexor weakness but is able to ambulate with PT
Quad and calf strength intact
Drain output is serosanguineous x 2
Right foot is warm with intact Doppler signals
Continue APARNA
Keep JPs
Placement
PT/OT/ambulate
Follow-up with me in the office after discharge
Signed:
Jeyson Sanchez III, MD
Vascular Surgery
[facility]
Original Note:
Today's Communication / Plan
-
Seen and assessed with Dr. Sanchez
Assessment/Plan
-
Assessment: 71-year-old female POD #4 Right common femoral endarterectomy and profunda femoral artery endarterectomy with patch angioplasty using endarterectomized superficial femoral artery and rotational sartorius muscle flap coverage
Plan:
Continue PT/OT
Case management working on discharge planning to SNF-Auth pending, patient agreeable
Continue aspirin and statin
Keep ROLDAN drains, these will be removed at office follow-up
Okay for discharge when SNF bed available
Subjective Data
-
Date of Service: January 12, 2025
Patient seen sitting out of the chair with Dr. Sanchez this morning. Patient complains of difficulty moving her right leg. Denies pain, numbness. Ambulated with RN to bathroom this morning. Worked on movements in the chair this morning to
strengthen her hip flexor.
Objective Data
-
Vital Signs
Temp Pulse Resp BP Pulse Ox
98.0 F 88 20 183/86 94
01/12/25 08:00 01/12/25 09:09 01/12/25 08:00 01/12/25 09:09 01/12/25 08:00
Intake and Output
01/11/25 01/12/25 01/13/25
06:59 06:59 06:59
Intake Total 480 / 480 1320 / 1320
Output Total 705 / 705 75 / 75
Balance -225 / -225 1245 / 1245
Intake:
Oral fluids 480 / 480 1320 / 1320
Output:
Drain Output (Total) 130 / 130 75 / 75
Right Serafin-Parikh A 70 / 70 30 / 30
Right Serafin-Parikh B 60 / 60 45 / 45
Urine, Sanchez 575 / 575
Other:
How many times incontinent 1
MODERATE amount urine
How many times incontinent 2 3
SATURATED amount urine
Number of approximated MODERATE 1
amounts of urine
Lab Results
01/11/25 05:24
01/11/25 05:24
Calcium 7.8 mg/dl (8.4-10.2) L 01/11/25 05:24
Magnesium 2.1 mg/dl (1.6-2.3) 01/11/25 05:24
Total Bilirubin 0.3 mg/dl (0.2-1.3) 01/09/25 03:47
Direct Bilirubin 0.1 mg/dl (0.0-0.4) 01/09/25 03:47
AST 21 U/L (14-36) 01/09/25 03:47
ALT 19 U/L (0-35) 01/09/25 03:47
Alkaline Phosphatase 69 U/L (38-126) 01/09/25 03:47
Total Protein 5.8 g/dl (6.3-8.2) L 01/09/25 03:47
Albumin 3.4 g/dl (3.5-5.0) L 01/09/25 03:47
Physical Exam
-
No apparent distress, resting in the chair comfortably
No tachycardia
No dyspnea on room air
ABD rotund, nondistended, nontender
Right groin aparna dressing clean, dry, and intact, ROLDAN x 2 site clean, dry, and intact with minimal serosanguineous output
Right DP Doppler signal, right foot warm
--- NOTE | 2025-01-12 10:52 | CM ---
Addendum entered by Leila Azul 01/12/25 13:54:
IMM completed
transport time 4:30 pm
[facility] at [facility] updated
Addendum entered by Leila Azul 01/12/25 11:26:
Daughter agreeable to [facility].
Ambulance transport forms being completed.
Original Note:
Patient seen bedside.
Patient agreeable to [facility].
No beds available at [facility] per admissions liaison María until next week.
Spoke with daughter Mallory if no beds at [facility] would like [facility].
TC to [facility] at [facility], bed available after 4 pm.
Plan: [facility] skilled rehab once medically cleared.
Patient will need ambulance transport.
[facility]
Report# [phone]
--- NOTE | 2025-01-12 11:22 | W.DS.TRANS ---
DC Summary - Director Of It Operations
-
Discharge Instructions:
Discharge Diagnosis/Procedures Right common femoral artery endarterectomy/
profundoplasty, sartorius muscle flap
Diet As tolerated
Activity No strenuous activity
Driving Restrictions Not until seen by your Dr
Bathing Restrictions OK to Shower
Instructions:
Stand-Alone Forms: Vascular Surg Discharge Instr
Changes to Home Medications: Yes
Discharge Medications:
DC Medications w/original date entered in [employer]
gabapentin 300 mg capsule 300 mg PO BID Pain 12/27/24
glimepiride 2 mg tablet 2 mg PO DAILY Diabetes 12/27/24
metformin 1,000 mg tablet 1,000 mg PO BIDWMEAL Diabetes 12/27/24
montelukast 10 mg tablet 10 mg PO DAILY Allergies 12/27/24
prednisolone acetate (PF) 1 % eye drops,suspension 1 drp RIGHT EYE Q48H Eye Condition 12/27/24
valsartan 40 mg tablet 40 mg PO DAILY Blood Pressure 12/27/24
aspirin 81 mg chewable tablet 81 mg PO DAILY Blood Clot Prevention/Tx 01/08/25
brimonidine 0.2 % eye drops 1 drp RIGHT EYE BID Eye Condition 01/08/25
empagliflozin 25 mg-linagliptin 5 mg tablet (Glyxambi) 1 tab PO DAILY Diabetes 01/08/25
meclizine 12.5 mg tablet 12.5 mg PO TID Neurological Condition 01/08/25
atorvastatin 10 mg tablet 10 mg PO QPM #90 tabs 01/12/25
oxycodone 5 mg tablet 5 mg PO Q4HPRN PRN mild pain #7 tabs 01/12/25
Home Medication Changes
added statin and oxycodone for pain control
Pending Results: No
[2025-01-12 12:03] VITALS: BP 174/68
[2025-01-12 12:55] LABS: Glucose - Point of Care 52 mg/dl (70-99)
[2025-01-12 13:12] LABS: Glucose - Point of Care 58 mg/dl (70-99)
[2025-01-12 13:27] LABS: Glucose - Point of Care 78 mg/dl (70-99)
[2025-01-12 13:59] VITALS: BP 174/87
[2025-01-12 15:36] LABS: Glucose - Point of Care 141 mg/dl (70-99)
[2025-01-12 16:00] VITALS: BP 162/67
== END 2025-01-12 17:15 | DRG 254 ==
LOC: 2 SOUTH 06:20
PROVIDERS: Nurse Practitioner; ADMITTING PHYSICIAN Surgery Vascular Surgery; CONSULT PHYSICIAN Internal Medicine; PRIMARYCARE PHYSICIAN Family Medicine
PROC: 04CK0ZZ Extirpation of Matter from Right Femoral Artery, Open Approach (ICD-10-PCS; 2025-01-08)
PROC: 04UK07Z Supplement Right Femoral Artery with Autologous Tissue Substitute, Open Approach (ICD-10-PCS; 2025-01-08)
PROC: 0KXQ0ZZ Transfer Right Upper Leg Muscle, Open Approach (ICD-10-PCS; 2025-01-08)
DX: E11.51 Type 2 diabetes mellitus with diabetic peripheral angiopathy without gangrene (principal); I70.221 Atherosclerosis of native arteries of extremities with rest pain, right leg; I10 Essential (primary) hypertension; J44.9 Chronic obstructive pulmonary disease, unspecified; R32 Unspecified urinary incontinence; H54.61 Unqualified visual loss, right eye, normal vision left eye; R34 Anuria and oliguria; R09.02 Hypoxemia; Z87.891 Personal history of nicotine dependence; Z79.899 Other long term (current) drug therapy; Z79.84 Long term (current) use of oral hypoglycemic drugs; Z79.82 Long term (current) use of aspirin; Z88.5 Allergy status to narcotic agent
CPT/HCPCS: 15738; 35371; 36415; 71045; 71046; 80048; 80053; 82248; 82962; 83036; 83735; 85025; 85027; 85610; 85730; 86850; 86900; 86901; 88304; 88311; 93005; 97116; 97163; 97167; 97530; 97535

== ENCOUNTER 2025-01-24 18:07 | Inpatient (IN) | payer MEDICARE, OTHER, SELFPAY ==
[2025-01-24 11:40] VITALS: BP 101/79
[2025-01-24 12:10] LABS: Hematocrit 42.7 % (37.0-47.0); Hemoglobin 13.2 g/dL (12.0-16.0); Mean Corp Hgb Conc. 30.9 g/dL (33.0-37.0); Mean Corpuscular Volume 83.4 fL (81.0-99.0); Nucleated Red Blood Cells % 0 %; Platelet Count 354 10^3/uL (130-400); Red Cell Dist. Width 15.0 % (11.5-14.5)
[2025-01-24 12:50] LABS: ALT (SGPT) 20 U/L (0-35); AST (SGOT) 22 U/L (14-36); Albumin 3.9 g/dl (3.5-5.0); Alkaline Phosphatase 91 U/L (38-126); Blood Urea Nitrogen 30 mg/dl (7-17); Calcium 9.3 mg/dl (8.4-10.2); Carbon Dioxide 17 mmol/L (22-30); Chloride 109 mmol/L (98-107); Glucose 150 mg/dl (70-99); Potassium 4.6 mmol/L (3.5-5.1); Sodium 139 mmol/L (135-145); Total Protein 6.9 g/dl (6.3-8.2); eGFR 57.66
--- NOTE | 2025-01-24 13:58 | ED.GENMED ---
History of Present Illness
<Jorge L Bingham PA-C - Last Filed: 01/24/25 19:32>
General
Chief Complaint: Wound Check/Suture Removal
Time Seen by Provider: 01/24/25 13:45
History of Present Illness
History of Present Illness:
79-year-old female presents to the emergency department for evaluation of a suspected postoperative infection, she is 16 days status post right common femoral endarterectomy and profunda femoral artery endarterectomy with patch angioplasty using
endarterectomized superficial femoral artery, rotational sartorius muscle flap coverage. She has ROLDAN drains in place. Denies any fevers or chills
Review of Systems
<Jorge L Bingham PA-C - Last Filed: 01/24/25 19:32>
Review of Systems
Allergies reviewed?: Yes
All Other Systems: ROS reviewed and negative except as documented in HPI and ROS
Phy Exam
<Jorge L Bingham PA-C - Last Filed: 01/24/25 19:32>
Physical Exam
Physical Exam:
GEN: Well appearing, NAD, WDWN
HEENT: Oral mucosa moist, no scleral icterus
Cardiac: Regular rate
Lung: No respiratory distress, no tachypnea
MSK: No gross deformity or injuries
Skin: Good color, no pallor or jaundice, right groin incision with mild dehiscence and severe erythema as well as tenderness, ROLDAN drains in place
Neuro: AO x3, moves all extremities freely
Psych: Calm, cooperative
Course
<MARIBELL Tapia Last Filed: 01/24/25 19:32>
Orders/Labs/Results
Orders:
Orders
01/24/25 12:02
Complete Blood Count/With Diff Urgent
Comprehensive Metabolic Panel Urgent
01/24/25 13:53
CT Angio Abd/Pelvis w/wo IV [CT Abd/pelvis Angio W/wo Iv] Urgent
Comment:
Reason For Exam: post op groin infection s/p FEA
01/24/25 13:54
0.9% Sodium Chloride 1000 ml [Nss] 1,000 ml IV BOLUS
Piperacillin/Tazo 3.375 Gram [Zosyn] 3.375 gram in 50 ml IV NOW
01/24/25 14:01
Lactic Acid Q4H
Comment: CANCEL 2nd LACTIC ACID IF 1st LACTIC ACID IS LESS THAN 2
Blood Culture Q30M
ABBEY Source: Blood/Venous
Specimen Description:
Blood Culture Q30M
ABBEY Source: Blood/Venous
Specimen Description:
01/24/25 Dinner
2000 calorie (17 carb) Diabetic
At Your Request: Full Participation
01/24/25 17:12
Admit/Transfer Patient As Directed
Co-Sign Provider:
Level of Care: Inpatient admission
Assign to:: Medical/Surgical
Physician / Group: Htay
Diagnosis: Sepsis, Post-Op wound infection
Reason for Hospitalization: IV abx
Expected length of stay greater than two midnights?: Yes
ELOS- Estimated Length of Stay in days: 3
I certify the patient meets the requirements for IP care: Yes
PRN Pain Medication Management As Directed
May give lesser potent ordered pain med per pt: Yes
preference::
Protocol:: Medication orders for pain may be administered in a
manner that supports deferring to patient preference
when the pt is:
- Requesting an ordered lesser potent pain medication.
Least to most potent pain medications are defined
as: acetaminophen < NSAID < tramadol < opioids
(morphine, oxycodone, hydromorphone).
- Requesting a lesser dose of the same medication IF
ORDERED.
- Requesting a less intrusive route of administration
if both routes are prescribed by the provider (PO <
IV).
01/24/25 17:19
Code Status As Directed
Resuscitation Status: Full Code
01/24/25 18:13
Acetaminophen [Tylenol] 650 mg PO Q4HPRN PRN
Atorvastatin [Lipitor] 10 mg PO QPM
Dextrose 50%-Water [Dextrose 50% Syringe] 12.5 grams IV [id number] PRN
Glucagon [GlucaGen] 1 mg IM PRN PRN
VANCOMYCIN Pharmacy to Dose [VANCOCIN Pharmacy to Dose] 1 each Pharmacy To Prepare [Call Pharmacy To Prepare] 0 ml IV PER PROTOCOL
01/24/25 18:13
Vascular Surgery Consult Routine
Consulting Provider: Song Millan
Was physician already notified: Yes
WOUND/OSTOMY CONSULT Routine
Reason for Consult: right groin wound
Activity As Directed
Activity Level: Out of Bed-Early Mobility
With Assistance
Bedside Glucose Monitoring As Directed
Frequency: AC&HS
Additional Instructions:: Change to q6h if pt on TPN, tube feeding or not eating
Vital Signs As Directed
Frequency: Per unit guidelines
Weight As Directed
Frequency: Daily
DX Deep Vein Thrombosis Video Routine
01/24/25 18:14
Lactic Acid Q4H
Comment: CANCEL 2nd LACTIC ACID IF 1st LACTIC ACID IS LESS THAN 2
01/24/25 20:00
Gabapentin [Neurontin] 300 mg PO BID
Piperacillin/Tazo 3.375 Gram [Zosyn] 3.375 gram in 50 ml IV Q6H
cilostazol See Dose Instructions PO BID
01/25/25 Breakfast
NPO
Allow oral meds: Yes
Allow clear liquids: No
Basic Metabolic Panel IN AM
Complete Blood Count/No Diff IN AM
Glycohemoglobin (HgbA1c) IN AM
01/25/25 07:30
Insulin Aspart Corrective Low [Novolog Flexpen-Low Resistance] See Protocol SC AC
01/25/25 08:00
Aspirin Chewable [Low Strength Aspirin] 81 mg PO DAILY
Montelukast Sodium [Singulair] 10 mg PO DAILY
Valsartan [Diovan] 40 mg PO DAILY
01/25/25 18:00
Enoxaparin Sodium [Lovenox] 40 mg SC QPM
01/26/25 08:00
empagliflozin-linagliptin [Glyxambi] See Dose Instructions PO DAILY
Abnormal Lab Results
01/24/25 01/24/25
12:02 14:01
WBC 12.8 H 10^3/uL
(4.8-10.8)
MCH 25.8 L pg
(27.0-31.0)
MCHC 30.9 L g/dL
(33.0-37.0)
RDW 15.0 H %
(11.5-14.5)
Abs Immat Gran (auto) 0.1 H 10^3/uL
(0-0.05)
Absolute Neuts (auto) 9.9 H 10^3/uL
(1.4-6.5)
Absolute Monos (auto) 1.0 H 10^3/uL
(0.1-0.6)
Neutrophils % 77.4 H %
(42.2-75.2)
Lymphocytes % 12.4 L %
(20.5-51.1)
Chloride 109 H mmol/L
(98-107)
Carbon Dioxide 17 L mmol/L
(22-30)
BUN 30 H mg/dl
(7-17)
Glucose 150 H mg/dl
(70-99)
Lactic Acid 2.6 H mmol/L
(0.7-2.0)
01/24/25 12:02
01/24/25 12:02
Vital Signs
Initial and Last Documented VS:
Initial Vital Signs
Temp Pulse Resp BP Pulse Ox
98.1 F 100 16 101/79 98
01/24/25 11:40 01/24/25 11:40 01/24/25 11:40 01/24/25 11:40 01/24/25 11:40
Last Documented Vital Signs
Temp Pulse Resp BP Pulse Ox
98.5 F 99 18 155/74 93
01/24/25 17:51 01/24/25 15:38 01/24/25 16:00 01/24/25 15:38 01/24/25 15:38
<Shreyas Corcoran MD - Last Filed: 01/24/25 17:16>
Orders/Labs/Results
Orders:
Orders
01/24/25 12:02
Complete Blood Count/With Diff Urgent
Comprehensive Metabolic Panel Urgent
01/24/25 13:53
CT Angio Abd/Pelvis w/wo IV [CT Abd/pelvis Angio W/wo Iv] Urgent
Comment:
Reason For Exam: post op groin infection s/p FEA
01/24/25 13:54
0.9% Sodium Chloride 1000 ml [Nss] 1,000 ml IV BOLUS
Piperacillin/Tazo 3.375 Gram [Zosyn] 3.375 gram in 50 ml IV NOW
01/24/25 14:01
Lactic Acid Q4H
Comment: CANCEL 2nd LACTIC ACID IF 1st LACTIC ACID IS LESS THAN 2
Blood Culture Q30M
ABBEY Source: Blood/Venous
Specimen Description:
Blood Culture Q30M
ABBEY Source: Blood/Venous
Specimen Description:
01/24/25 Dinner
2000 calorie (17 carb) Diabetic
At Your Request: Full Participation
01/24/25 17:12
Admit/Transfer Patient As Directed
Co-Sign Provider:
Level of Care: Inpatient admission
Assign to:: Medical/Surgical
Physician / Group: Htay
Diagnosis: Sepsis, Post-Op wound infection
Reason for Hospitalization: IV abx
Expected length of stay greater than two midnights?: Yes
ELOS- Estimated Length of Stay in days: 3
I certify the patient meets the requirements for IP care: Yes
PRN Pain Medication Management As Directed
May give lesser potent ordered pain med per pt: Yes
preference::
Protocol:: Medication orders for pain may be administered in a
manner that supports deferring to patient preference
when the pt is:
- Requesting an ordered lesser potent pain medication.
Least to most potent pain medications are defined
as: acetaminophen < NSAID < tramadol < opioids
(morphine, oxycodone, hydromorphone).
- Requesting a lesser dose of the same medication IF
ORDERED.
- Requesting a less intrusive route of administration
if both routes are prescribed by the provider (PO <
IV).
01/24/25 17:19
Code Status As Directed
Resuscitation Status: Full Code
01/24/25 18:13
Acetaminophen [Tylenol] 650 mg PO Q4HPRN PRN
Atorvastatin [Lipitor] 10 mg PO QPM
Dextrose 50%-Water [Dextrose 50% Syringe] 12.5 grams IV [id number] PRN
Glucagon [GlucaGen] 1 mg IM PRN PRN
VANCOMYCIN Pharmacy to Dose [VANCOCIN Pharmacy to Dose] 1 each Pharmacy To Prepare [Call Pharmacy To Prepare] 0 ml IV PER PROTOCOL
01/24/25 18:13
Vascular Surgery Consult Routine
Consulting Provider: Song Millan
Was physician already notified: Yes
WOUND/OSTOMY CONSULT Routine
Reason for Consult: right groin wound
Activity As Directed
Activity Level: Out of Bed-Early Mobility
With Assistance
Bedside Glucose Monitoring As Directed
Frequency: AC&HS
Additional Instructions:: Change to q6h if pt on TPN, tube feeding or not eating
Vital Signs As Directed
Frequency: Per unit guidelines
Weight As Directed
Frequency: Daily
DX Deep Vein Thrombosis Video Routine
01/24/25 18:14
Lactic Acid Q4H
Comment: CANCEL 2nd LACTIC ACID IF 1st LACTIC ACID IS LESS THAN 2
01/24/25 20:00
Gabapentin [Neurontin] 300 mg PO BID
Piperacillin/Tazo 3.375 Gram [Zosyn] 3.375 gram in 50 ml IV Q6H
cilostazol See Dose Instructions PO BID
01/25/25 Breakfast
NPO
Allow oral meds: Yes
Allow clear liquids: No
Basic Metabolic Panel IN AM
Complete Blood Count/No Diff IN AM
Glycohemoglobin (HgbA1c) IN AM
01/25/25 07:30
Insulin Aspart Corrective Low [Novolog Flexpen-Low Resistance] See Protocol SC AC
01/25/25 08:00
Aspirin Chewable [Low Strength Aspirin] 81 mg PO DAILY
Montelukast Sodium [Singulair] 10 mg PO DAILY
Valsartan [Diovan] 40 mg PO DAILY
01/25/25 18:00
Enoxaparin Sodium [Lovenox] 40 mg SC QPM
01/26/25 08:00
empagliflozin-linagliptin [Glyxambi] See Dose Instructions PO DAILY
Abnormal Lab Results
01/24/25 01/24/25
12:02 14:01
WBC 12.8 H 10^3/uL
(4.8-10.8)
MCH 25.8 L pg
(27.0-31.0)
MCHC 30.9 L g/dL
(33.0-37.0)
RDW 15.0 H %
(11.5-14.5)
Abs Immat Gran (auto) 0.1 H 10^3/uL
(0-0.05)
Absolute Neuts (auto) 9.9 H 10^3/uL
(1.4-6.5)
Absolute Monos (auto) 1.0 H 10^3/uL
(0.1-0.6)
Neutrophils % 77.4 H %
(42.2-75.2)
Lymphocytes % 12.4 L %
(20.5-51.1)
Chloride 109 H mmol/L
(98-107)
Carbon Dioxide 17 L mmol/L
(22-30)
BUN 30 H mg/dl
(7-17)
Glucose 150 H mg/dl
(70-99)
Lactic Acid 2.6 H mmol/L
(0.7-2.0)
01/24/25 12:02
01/24/25 12:02
Vital Signs
Initial and Last Documented VS:
Initial Vital Signs
Temp Pulse Resp BP Pulse Ox
98.1 F 100 16 101/79 98
01/24/25 11:40 01/24/25 11:40 01/24/25 11:40 01/24/25 11:40 01/24/25 11:40
Last Documented Vital Signs
Temp Pulse Resp BP Pulse Ox
98.5 F 99 18 155/74 93
01/24/25 17:51 01/24/25 15:38 01/24/25 16:00 01/24/25 15:38 01/24/25 15:38
<Jorge L Bingham PA-C - Last Filed: 01/24/25 19:32>
MDM/Problems Addressed
MDM/Problems Addressed:
Not organized fluid collection seen on angiography, will be admitted for IV antibiotics and operative intervention tomorrow
<Jorge L Bingham PA-C - Last Filed: 01/24/25 19:32>
*Pulse Oximetry
SaO2: 98
Oxygen Mode of Delivery: Room air
Patient hypoxic: no
*Critical Care Note
Total Time (30-74mins, 75-104mins- exclusive of procedures): Not Applicable
ED Attending Note
<Jorge L Bingham PA-C - Last Filed: 01/24/25 19:32>
-
Portions of this chart may have been created with voice recognition software.� Occasional wrong word or��sound alike� substitutions may have occurred due to the inherent limitations of voice recognition software.
<Shreyas Corcoran MD - Last Filed: 01/24/25 17:16>
ED Attending Note
Patient seen and examined by attending physician: Yes
ED Attending Note:
I have seen and evaluated the patient with a [id number] encounter. I have spoken to the advance practicer provider and involved in the medical history, the physical exam, medical decision making.
Evaluation and management service: agree unless noted differently below.
Results interpretation: agree unless noted differently below.
Focused HPI: 79-year-old female with extensive history as noted presents sent in by vascular surgery team for wound infection. Patient had a right common femoral endarterectomy and profundofemoral artery endarterectomy with patch angioplasty on
01/08/[address] Sanchez. Unfortunately developed infection of right groin wound was sent to the ER for evaluation and likely admission for OR.
Physical exam: Awake and alert, nontoxic-appearing. Mild tachycardia but normotensive, otherwise vital signs are normal.
Medical Decision Makin-year-old female presents with infected surgical wound. PA discussed with vascular surgery will admit to the hospitalist service plan to take to the OR for debridement. IV antibiotics for now.
Discharge Plan
Departure
Patient Disposition: Admit
Date of Disposition: 01/24/25
Time of Disposition: 15:49
Admit to: Med/Surg
Presentation/result/management discussed w/ accepting MD/DO: Hospitalist
Discharge Problem:
Post-operative infection
Interventions
Interventions:
*General Assessment Last Done: 01/24/25 11:40
*Neglect/Abuse Screening Last Done: 01/24/25 11:40
*ED COVID-19 Vaccine History Last Done: 01/24/25 11:40
*ED Influenza Vaccine History Last Done: 01/24/25 11:[address]
[facility] Fall Risk Assessment Tool Last Done: 01/24/25 14:29
*Risk Screen - Suicide (C-SSRS) Last Done: 01/24/25 11:40
ED-Skin Assessment Last Done: 01/24/25 14:29
[2025-01-24] MEDS: ZOSYN 50 IV ×2 (14:06→19:39)
[2025-01-24] MEDS: NSS 1000 IV ×2 (14:08→19:25)
--- NOTE | 2025-01-24 14:21 | W.PN.UPDATE ---
Addendum entered and electronically signed by Song Millan MD 01/24/25 15:26:
CT reviewed. No evidence of pseudoaneurysm. Patent femoral endarterectomy site. No focal fluid collection. There is a little bit of postoperative fluid anterior to the arterial repair, although that could be the sartorius muscle flap. Continue
with plan for washout/debridement tomorrow.
Original Note:
Update Note
Progress Note Update
Seen and evaluated emergency room. Seen with ASSISTANT CROSS COUNTRY COACH's. Full consultation to follow. 79-year-old female sent from our vascular surgical office. Patient had a history of a femoral endarterectomy with endarterectomized superficial femoral artery patch
angioplasty and sartorius muscle flap coverage by Dr. Sanchez 01/08/2025. Referred from office due to concerns for groin infection. She still has [address] which she notes are draining Blake-Aid like material. No significant drainage from the
incision site. No bleeding. No definitive fever. On exam/she is awake and alert. No acute distress. Breathing is unlabored. Abdomen is soft. Right groin as pictured in office note pictures. There is necrotic skin in the central portion of
the incision site. Armstrong are intact proximal and distal to that but the skin does not look like it is definitively healed. There is mild erythema. No pulsatile mass. JPs are nonpurulent.
Plan/ Likely superficial groin infection. Will likely require washout/debridement. Would obtain CTA first to ensure that there is no involvement deep to the sartorius flap (blood vessel involvement). I discussed with her frankly complications if
the blood vessels are involved. Discussed likely debridement/washout. Discussed likely VAC placement. Will await CT scan findings for planning definitively. Likely planned OR washout tomorrow.
--- NOTE | 2025-01-24 14:27 | W.PN.UPDATE ---
Update Note
Progress Note Update
[2025-01-24 15:38] VITALS: BP 155/74
--- NOTE | 2025-01-24 16:47 | HPS.HSE ---
Family Physician
-
Family Physician: Rinku Hahn
Chief Complaint
-
Right Groin Infection
History of Present Illness
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
flap on January 08 who presents with right groin wound infection. Patient was seen by vascular surgery PA today in the office who sent her to the emergency department for evaluation with concerns for postop wound infection. Patient notes that is
very foul-smelling. Patient denies fevers, sweats or chills.
Medical History
Past Medical History
Past Medical History: Reports Other
Additional Past Medical History:
Peripheral Arterial Disease
Diabetes Mellitus, Type II
Diabetic Neuropathy
Essential Hypertension
Hyperlipidemia
COPD
Past Surgical History: Reports Other
Additional Past Surgical History:
Right Common Femoral Endarterectomy / Profunda Femoral Artery Endarterectomy with Sartorius Muscle Flap Coverage
Right Knee Surgery
Multiple Back Surgeries
Cholecystectomy
Social History
Tobacco: Former Smoker (Quit in 2018)
Family History
Family History: Not pertinent
Allergies / Home Medications
Allergies reflects when Allergies were last updated in [employer].
Home Medications with original date entered in [employer]
Allergy/Medication List:
Allergies
Allergy/AdvReac Type Severity Reaction Status Date / Time
codeine Allergy Severe Verified 01/24/25 11:42
Nausea/vomiting/dizziness
Home Medications
gabapentin 300 mg capsule 300 mg PO BID Pain 12/27/24
glimepiride 2 mg tablet 2 mg PO DAILY Diabetes 12/27/24
metformin 1,000 mg tablet 1,000 mg PO BID Diabetes 12/27/24
montelukast 10 mg tablet 10 mg PO DAILY Allergies 12/27/24
prednisolone acetate (PF) 1 % eye drops,suspension 1 drp RIGHT EYE Q48H Eye Condition 12/27/24
valsartan 40 mg tablet 40 mg PO DAILY Blood Pressure 12/27/24
aspirin 81 mg chewable tablet 81 mg PO DAILY Blood Clot Prevention/Tx 01/08/25
brimonidine 0.2 % eye drops 1 drp RIGHT EYE BID Eye Condition 01/08/25
empagliflozin 25 mg-linagliptin 5 mg tablet (Glyxambi) 1 tab PO DAILY Diabetes 01/08/25
meclizine 12.5 mg tablet 12.5 mg PO TID Neurological Condition 01/08/25
atorvastatin 10 mg tablet 10 mg PO QPM #90 tabs 01/12/25
cilostazol 100 mg tablet 100 mg PO BID 01/24/25
Review of Systems
-
History Source: Patient
A 12 point ROS was completed and negative except as noted: Yes
Constitutional: Denies Fever or Chills
Respiratory: Denies Cough or Trouble Breathing
Cardiac: Denies Chest Pain or Palpitations
Physical Exam
Vital Signs
Vital Signs
Temp Pulse Resp BP Pulse Ox
97.8 F 99 18 155/74 93
01/24/25 15:38 01/24/25 15:38 01/24/25 16:00 01/24/25 15:38 01/24/25 15:38
Physical Exam
General: Comfortable and Conversant
HEENT: Anicteric and Moist mucous membranes
Respiratory: Clear and Non Labored Respirations
Cardiac: S1/S2 and Regular Rhythm
GI: Soft and Non Tender
Rectal: Deferred by Provider
Musculoskeletal: No Clubbing and No Cyanosis
Skin: Other (Right groin site with erythema, foul smelling odor and evidence of necrotic tissue)
Neuro: Awake, Alert, Oriented and Nonfocal/grossly intact
Psych: Calm
Laboratory Results
-
01/24/25 12:02
01/24/25 12:02
Laboratory Results
Lactic Acid 2.6 mmol/L (0.7-2.0) H 01/24/25 14:01
Total Bilirubin 0.6 mg/dl (0.2-1.3) 01/24/25 12:02
AST 22 U/L (14-36) 01/24/25 12:02
ALT 20 U/L (0-35) 01/24/25 12:02
Alkaline Phosphatase 91 U/L (38-126) 01/24/25 12:02
Abdomen/Pelvis CT:
Nonorganized fluid and inflammation in the right groin status post right common femoral and profunda femoris endarterectomies. No CTA evidence for arterial contrast extravasation or pseudoaneurysm.
Data Reviewed
-
CT Scan: Report Reviewed by me
Lab Data: Labs Reviewed by me
Old Records: Reviewed
Impression/Plan
-
Sepsis (as indicated by lactic acidosis of 2.6) secondary to post-op right groin wound infection
-Trend lactic acid level
-Continue Vancomycin / Zosyn
-Plan for OR tomorrow washout / debridement
-Consult Wound Care
Peripheral Arterial Disease s/p Right Common Femoral Endarterectomy / Profunda Femoral Artery Endarterectomy with Sartorius Muscle Flap Coverage on 01/08/2025
-Continue aspirin and cilostazol
Diabetes Mellitus, Type II
-Hold glimepiride and metformin
-Continue empagliflozin and linagliptin
-Monitor sugars and continue coverage insulin
Diabetic Neuropathy
-Continue gabapentin
Essential Hypertension
-Continue valsartan
Hyperlipidemia
-Continue atorvastatin
DVT Proph: Lovenox
Code Status: Full Code
--- NOTE | 2025-01-24 17:05 | W.PN.UPDATE ---
Update Note
Progress Note Update
This note serves as an addendum to the H&P by professor of practice SUPRIYA�
Sunita DIETERICK
HPI
79F
PMHX: PAD, HLD, T2DM, HTN
Recent Vascular surgery S/P femoral endarterectomy with endarterectomized superficial femoral artery patch angioplasty and sartorius muscle flap coverage ( Dr. Sanchez 01/08/2025) f/u at Vascular office today - concerns for groin infection.
- still has [address] which she notes are draining Blake-Aid like material.
- no significant drainage from the incision site.
- No bleeding.
- No definitive fever
Relevant VS
Temp Pulse Resp BP Pulse Ox
97.8 F 99 18 155/74 93
01/24/25 15:38 01/24/25 15:38 01/24/25 16:00 01/24/25 15:38 01/24/25 15:38
PE
Gen: Not toxic, NAD
Resp: No resp distress
Abdomen: soft, NG , NRT
R groin: review picture from Daughter Tele
- necrotic skin in the central portion of the incision site.
- daria are intact proximal and distal to that
- mild erythema.
- JPs drainage is nonpurulent.
Relevant Data
01/11/25 01/24/25 01/24/25
05:24 12:02 14:01
WBC 12.8 H
Hgb 11.9 L 13.2
Plt Count 354
Potassium 4.3 4.6
Chloride 110 H 109 H
Carbon Dioxide 24 17 L
BUN 30 H
Creatinine 1.0 1.0
eGFR 57.66 57.66
Lactic Acid 2.[address]/pelvis Angio W/wo Iv
- Nonorganized fluid and inflammation in the R groin
- status post right common femoral and profunda femoris endarterectomies.
- No CTA evidence for arterial contrast extravasation or pseudoaneurysm.
Last hospitalist admission: 01/08/25 - 01/12/25 to Vascular service
PDX:
Right common femoral artery endarterectomy profundoplasty, sartorius muscle flap
ASSESSMENT & PLAN
Post op superficial groin infection at surgical site with foul smelling purulent necrotic site
CTA shows Nonorganized fluid and inflammation in the R groin
- Recent S/P femoral endarterectomy with endarterectomized superficial femoral artery patch angioplasty and sartorius muscle flap coverage ( Dr. Sanchez 01/08/2025)
- POS LA 2s
- on CONFERENCE AND EVENT ORGANISER ASA and Cilostazol 100mg PO BID for recent endarterectomy
- agree with BS ABX: IV vanco and Zosyn
- Per Vascular - likely require washout/debridement.
- Likely planned OR washout tomorrow per Vascular
Known HX
HLD: on CONFERENCE AND EVENT ORGANISER Atorvastatin
T2DM: Holding Metformin and Glimepiride
Essential HTN: on CONFERENCE AND EVENT ORGANISER Valsartan
Stable RFTs
DVT Px:SCD
Code: Full code
IP MS
[2025-01-24] MEDS: LIPITOR 10 MG PO (19:38)
[2025-01-24] MEDS: NEURONTIN 300 MG PO (19:47)
[2025-01-24] MEDS: VANCOCIN 540 MG IV (19:56)
[2025-01-24] MEDS: NSS 500 IV (20:05)
--- NOTE | 2025-01-24 20:16 | PHA.VAN.IN ---
Assessment
- Assessment
Renal Function: Appears similar to baseline
Concomitant Antimicrobials: PIPERACILLIN/TAZO
AUC Dosing Plan
- Dosing Variables
Dosing Weight (kg): 77.6
Dosing CrCl (ml/min): 42
Vd coefficient (L/kg): 0.7
- Empiric Dosing
Initial / Loading Dose: VANCOMYCIN 2000 MG IV ~ 2000
Maintenance Regimen: VANCOMYCIN 1GM IV Q24H
Estimated AUC (mcg*h/mL): 478
Estimated Peak (mcg*h/mL): 30.2
Estimated Trough (mcg/ml): 12.2
Estimated Half Life (H): 17.7
- Monitoring
No levels ordered at this time: Please consider levels in next few days. Pharmacy will follow.
Pharmacokinetics Vancomycin I
- -
Patient Age: 79
Patient Sex: Female
Vancomycin Day #: 1
Indication: Skin And Soft Tissue
Requesting Provider: Marion Marquis PA-C
Height / Weight:
Height 4 ft 11 in
Actual Weight 77.6 kg
Pertinent Past Medical History: IDDM pt w. Rt groin post-op infection. Likely planned OR washout tomorrow.
- Vital Signs / Lab Results
Temp Pulse Resp BP Pulse Ox
98.5 F 99 18 155/74 93
01/24/25 17:51 01/24/25 15:38 01/24/25 16:00 01/24/25 15:38 01/24/25 15:38
Lab Results - Hematology
01/24/25
12:02
WBC 12.8 H
Lab Results - Chemistry
01/24/25
12:02
BUN 30 H
Creatinine 1.0
Albumin 3.9
01/24/25 01/24/25
14:01 18:14
Lactic Acid 2.6 H 2.1 H
[2025-01-25] VITALS (15 sets, daily range): BP systolic 118–172; BP diastolic 50–79
[2025-01-25 00:14] LABS: Glucose - Point of Care 58 mg/dl (70-99)
[2025-01-25] MEDS: DEXTROSE 50% SYRINGE 12.5 GRAMS IV ×3 (00:18→07:50)
[2025-01-25 00:45] LABS: Glucose - Point of Care 108 mg/dl (70-99)
--- NOTE | 2025-01-25 01:06 | PTCARENOTE ---
0013 pt Blood Glucose 58, 0018 12.5gms D5 given, repeat glucose 108. Will recheck at 0245 and 0445. Bri notified
[2025-01-25] MEDS: ZOSYN 50 IV ×4 (02:14→21:09)
[2025-01-25 02:43] LABS: Glucose - Point of Care 74 mg/dl (70-99)
--- NOTE | 2025-01-25 02:54 | PTCARENOTE ---
0245 Repeat glucose 74, BIsaias notified, IVF ordered, see MAR
[2025-01-25] MEDS: D5/0.45%NACL 1000 IV ×2 (03:07→16:08)
[2025-01-25 04:40] LABS: Glucose - Point of Care 52 mg/dl (70-99)
[2025-01-25 04:54] LABS: Glucose - Point of Care 112 mg/dl (70-99)
[2025-01-25 06:01] LABS: Glucose - Point of Care 112 mg/dl (70-99)
[2025-01-25 07:49] LABS: Glucose - Point of Care 67 mg/dl (70-99)
[2025-01-25 08:14] LABS: Glucose - Point of Care 128 mg/dl (70-99)
[2025-01-25] MEDS: SINGULAIR 10 MG PO (09:00)
[2025-01-25] MEDS: DIOVAN 40 MG PO (09:01)
[2025-01-25] MEDS: FARXIGA PO (09:01)
[2025-01-25] MEDS: NEURONTIN 300 MG PO ×2 (09:01→21:09)
[2025-01-25] MEDS: LOW STRENGTH ASPIRIN 81 MG PO (09:01)
[2025-01-25 10:06] LABS: Hematocrit 39.0 % (37.0-47.0); Hemoglobin 12.0 g/dL (12.0-16.0); Mean Corp Hgb Conc. 30.8 g/dL (33.0-37.0); Mean Corpuscular Volume 84.6 fL (81.0-99.0); Platelet Count 271 10^3/uL (130-400); Red Cell Dist. Width 15.1 % (11.5-14.5)
[2025-01-25 10:15] LABS: Glucose - Point of Care 109 mg/dl (70-99)
[2025-01-25 10:26] LABS: Blood Urea Nitrogen 19 mg/dl (7-17); Calcium 8.0 mg/dl (8.4-10.2); Carbon Dioxide 20 mmol/L (22-30); Chloride 111 mmol/L (98-107); Estimated Creatinine Clearance 52 ml/min; Glucose 95 mg/dl (70-99); Potassium 4.2 mmol/L (3.5-5.1); Sodium 138 mmol/L (135-145); eGFR > 60.00
[2025-01-25] MEDS: BACTROBAN 2% OINTMENT 1 APPLIC NASAL (10:36)
[2025-01-25] MEDS: PERIDEX 0.12% ORAL RINSE 15 ML PO (10:36)
--- NOTE | 2025-01-25 11:35 | WOUNDNOTE ---
WOC RN note: Vascular service managing R groin wound and will notify WOC RN if there is any vac needs (i.e. home vac order). Patient is for a R groin I+D and washout with possible vac placement. Call if needed.
--- NOTE | 2025-01-25 11:43 | PHA.VAN.FU ---
Vancomycin Assessment / Plan
- Assessment
Renal Function: Stable
WBC's are: Trending Down
In the past 24 hrs, patient has been: Afebrile
- Dosing Plan
Continue: 1000 mg q 24H
- Monitoring Plan
No level(s) ordered at this time: consider checking the next few days
Monitoring Comments: Patient may go to OR for debriment
- Follow Up
Pharmacy will continue to follow.
Vancomycin Follow UP
- -
Patient Age: 79
Patient Sex: Female
Vancomycin Day #: 2
Indication: Skin And Soft Tissue
Requesting Provider: Marion Marquis PA-C
Height / Weight:
Height 4 ft 11 in
Actual Weight 77.6 kg
Pertinent Past Medical History: IDDM pt w. Rt groin post-op infection. Likely planned OR washout tomorrow.
- Vital Signs / Lab Results
Temp Pulse Resp BP Pulse Ox
98.3 F 89 20 151/75 92
01/25/25 11:36 01/25/25 11:36 01/25/25 11:36 01/25/25 11:36 01/25/25 11:36
Lab Results - Hematology
01/24/25 01/25/25
12:02 09:21
WBC 12.8 H 8.8
Lab Results - Chemistry
01/24/25 01/25/25
12:02 09:21
BUN 30 H 19 H
Creatinine 1.0 0.8
Estimated Creat Clear 52
Albumin 3.9
01/24/25 01/24/25 01/24/25
14:01 18:14 21:47
Lactic Acid 2.6 H 2.1 H 1.0
[2025-01-25 11:58] LABS: Glucose - Point of Care 90 mg/dl (70-99)
[2025-01-25] MEDS: VANCOCIN 200 IV (12:25)
--- NOTE | 2025-01-25 12:50 | W.PN.HOSP.TC ---
Today's Communication/Plan
-
OR today for washout and debridement
Continue with broad-spectrum antibiotics for now
Postop orders per vascular surgery
Monitor ROLDAN drain output
Hold p.o. diabetic medication for now
Assessment / Plan
Assessment / Plan
General: Comfortable and Conversant
HEENT: Anicteric and Moist mucous membranes
Respiratory: Clear and Non Labored Respirations
Cardiac: S1/S2 and Regular Rhythm
GI: Soft and Non Tender
Rectal: Deferred by Provider
Musculoskeletal: No Clubbing and No Cyanosis
Skin: Other (Right groin site with erythema, foul smelling odor and evidence of necrotic tissue) ROLDAN drain x 2 with serosanguineous fluid noted
Neuro: Awake, Alert, Oriented and Nonfocal/grossly intact
Psych: Calm
Sepsis (as indicated by lactic acidosis of 2.6) secondary to post-op right groin wound infection
Lactic acidosis
-Lactate downtrended
-Continue Vancomycin / Zosyn
-Plan for OR washout / debridement. Await OR cultures. f/u on blood cultures
-Vascular following.
Peripheral Arterial Disease s/p Right Common Femoral Endarterectomy / Profunda Femoral Artery Endarterectomy with Sartorius Muscle Flap Coverage on 01/08/2025
-Continue aspirin and cilostazol
Diabetes Mellitus, Type II
-Hold glimepiride and metformin
-hold empagliflozin and linagliptin
-Monitor sugars and continue coverage insulin
Diabetic Neuropathy
-Continue gabapentin
Essential Hypertension
-Continue valsartan
Hyperlipidemia
-Continue atorvastatin
DVT Proph: Lovenox
Code Status: Full Code
Anticipated Discharge: > 48 hours
Subjective/Interval History
-
Date of Service: January 25, 2025
States did not eat much yesterday currently feeling hungry
Needs to remain n.p.o. for surgery today
Denies right groin pain
States she is to have mild drainage from the ROLDAN drain from previous surgery
Objective Data
-
Labs:
Laboratory Results
01/25/25
09:21
WBC 8.8
Hgb 12.0
Hct 39.0
Plt Count 271 D
Sodium 138
Potassium 4.2
Chloride 111 H
Carbon Dioxide 20 L
BUN 19 H
Creatinine 0.8
Glucose 95
Calcium 8.0 L
Vital Signs:
Vital Signs
Temp Pulse Resp BP Pulse Ox
98.3 F 89 20 151/75 92
01/25/25 11:36 01/25/25 11:36 01/25/25 11:36 01/25/25 11:36 01/25/25 11:36
I&O
01/24/25 01/25/25 01/26/25
06:59 06:59 06:59
Intake Total 2380 / 2380 250 / 250
Output Total 30 / 30
Balance 2350 / 2350 250 / 250
Data Reviewed
-
Total Time Spent with Patient (in minutes): 55
--- NOTE | 2025-01-25 14:37 | W.SUR.POST ---
Surgical Immediate Post Op
Note
Pre Op Diagnosis: Right groin infection
Post Op Diagnosis:Right groin infection
Procedure Performed: Right groin incision and drainage, wash out, pulse lavage, and wound vac placement, incision measurements as 12cm length, 12cm width, 3cm depth
Primary Surgeon: Song Millan MD
Jet Mechanic: LAVELL Mathias
Anesthesia: GETA
Estimated Blood Loss: 40ml
Fluids: See anesthesia flowsheet
Drains/Shunts: N/A
Specimens/Cultures: wound cultures
Doppler/Duplex/Angio (Y/N): N
Complications: none
Operative Findings: successful washout of infected incision
--- NOTE | 2025-01-25 15:00 | WOUNDNOTE ---
WOC RN note: Clarified with Merari Gomez vascular LINE MECHANIC that the vascular service will change patient's next vac dressing on Wednesday.
[2025-01-25 15:04] LABS: Glucose - Point of Care 135 mg/dl (70-99)
--- NOTE | 2025-01-25 15:29 | OR.RPT ---
Operative Report
Operative Report
PROCEDURE DATE: 01/25/2025
Preoperative diagnosis: Superficial wound infection right groin status post femoral endarterectomy and sartorius muscle flap coverage.
Postoperative diagnosis: Same
Procedure: Excisional debridement right groin necrotic skin and subcutaneous fatty tissue. Pulse lavage irrigation. Placement of wound VAC measuring 12 x 12 x 3 cm.
Surgeon: Monty
Head Soft Sugar Operator: МАРИНА March required for all aspects of procedure including assistance with traction/countertraction, application of VAC.
Complications: None
Anesthesia: General
Indications for procedure:
Superficial wound infection right groin status post femoral endarterectomy requiring washout/debridement. Risk/benefits/alternatives also discussed. Patient understood and wished to proceed.
Description of procedure:
Patient was identified brought to the operating room placed on the table in supine position. After the adequate administration of anesthesia she was prepped and draped in the standard surgical fashion. A standard preoperative timeout was
undertaken and everybody was in agreement the plan. The suture and daria were removed from the majority of the central part of the incision. The superior most (obliquely angling suture in daria) were left in place as were the most inferior
ones. Upon removing the sutures there was a large island of necrotic skin at the lateral edge. Under the cyst the tissues were undermined I could easily probe my finger. I therefore then used a 15 blade to excise that skin and some of the
associated fat necrosis in the subcutaneous tissue. I cut out some of the deep dermal sutures as well to allow better exposure. There was really no pocket of infection. The deeper tissues were all incorporated/healing. This appeared to be a
primarily fat necrosis problem. At this point I then debrided as much of the fat necrosis as I could (sharply with a 15 blade or Metzenbaum scissor). I had good healthy bleeding tissue now. I inspected and noted that there was no exposed artery.
The muscle flap also was not really exposed. At this point we used a pulse lavage to irrigate the entire cavity. This was done with 3 L of saline solution.
Now hemostasis was achieved and confirmed.
Now a wound VAC was placed with measurements as noted above.
Patient tolerated procedure well.
[2025-01-25 17:57] LABS: Glucose - Point of Care 246 mg/dl (70-99)
[2025-01-25] MEDS: LOVENOX 40 MG SC (18:37)
[2025-01-25] MEDS: LIPITOR 10 MG PO (18:37)
--- NOTE | 2025-01-25 18:37 | PTCARENOTE ---
Pt arrived to [facility] at 1720 s/p right groin I&D with wound vac. Wound vac site erythemic with setting at 125mm/Hg continuous. Old ROLDAN sites on right thigh with gauze and tegaderm c/d/i. Perineum excoriated and METAL GRADER. Sanchez output yellow and to be
removed POD #1. 94% on 2L. Diminished at the bases. B/l DP pulses present with doppler. Bed locked and in lowest position. Call ramos within reach. Care ongoing.
[2025-01-25] MEDS: NOVOLOG FLEXPEN-LOW RESISTANCE 2 UNITS SC (18:42)
[2025-01-25] MEDS: DILAUDID 0.5 MG IV (21:09)
[2025-01-25 21:32] LABS: Glucose - Point of Care 318 mg/dl (70-99)
[2025-01-25] MEDS: NOVOLOG FLEXPEN 4 UNITS SC (21:45)
[2025-01-25 23:43] LABS: Glucose - Point of Care 257 mg/dl (70-99)
[2025-01-26] MEDS: ZOSYN 50 IV ×4 (02:11→20:41)
[2025-01-26 03:03] VITALS: BP 131/64
[2025-01-26 03:13] LABS: Glucose - Point of Care 231 mg/dl (70-99)
[2025-01-26] MEDS: VANCOCIN 200 IV (05:40)
[2025-01-26 06:00] VITALS: BMI 34.5
[2025-01-26 07:15] VITALS: BP 128/63
[2025-01-26 08:37] LABS: Glucose - Point of Care 150 mg/dl (70-99)
--- NOTE | 2025-01-26 08:54 | W.PN.VS ---
Addendum entered and electronically signed by Jeyson Sanchez III, MD 01/26/25 15:44:
This patient was seen and examined in collaboration with LAVELL Mathias. I agree with the history and physical exam as well as the assessment and plan.
Signed:
Jeyson Sanchez III, MD
Vascular Surgery
[facility]
Original Note:
Today's Communication / Plan
-
Seen and assessed with Dr Sanchez
Assessment/Plan
-
POD 1 Excisional debridement right groin necrotic skin and subcutaneous fatty tissue. Pulse lavage irrigation. Placement of wound VAC measuring 12 x 12 x 3 cm
Plan:
Continue wound VAC, next change wednesday
Planning for DC after VAC change wednesday
Wound care and case management for dc planning
Subjective Data
-
Date of Service: January 26, 2025
Pt seen at bedside this am with Dr Sanchez. Pt offers no complaints at this time. No events overnight.
Objective Data
-
Vital Signs
Temp Pulse Resp BP Pulse Ox
97.6 F 71 16 128/63 96
01/26/25 07:15 01/26/25 07:15 01/26/25 07:15 01/26/25 07:15 01/26/25 07:15
Intake and Output
01/25/25 01/26/25 01/27/25
06:59 06:59 06:59
Intake Total 2380 / 2380 1290 / 1290 480 / 480
Output Total 30 / 30 1150 / 1150
Balance 2350 / 2350 140 / 140 480 / 480
Intake:
Oral fluids 360 / 360 480 / 480
IV fluids (Total) 1740 / 1740 380 / 380
D5/0.45%NaCl 1,000 ml @ 100 mls 100 / 100
/hr IV .Q10H ANNETTE Rx#:[id number]
normal saline 50 / 50
IV piggybacks 640 / 640 550 / 550
Output:
Drain Output (Total)
Right Leg Serafin-Parikh A
Right Leg Serafin-Parikh B
Urine, Sanchez 1150 / 1150
Other:
How many times incontinent 5 1
SATURATED amount urine
Calcium 8.0 mg/dl (8.4-10.2) L 01/25/25 09:21
Total Bilirubin 0.6 mg/dl (0.2-1.3) 01/24/25 12:02
AST 22 U/L (14-36) 01/24/25 12:02
ALT 20 U/L (0-35) 01/24/25 12:02
Alkaline Phosphatase 91 U/L (38-126) 01/24/25 12:02
Total Protein 6.9 g/dl (6.3-8.2) 01/24/25 12:02
Albumin 3.9 g/dl (3.5-5.0) 01/24/25 12:02
Physical Exam
-
AAox3
No tachypnea
No tachycardia
Abd soft
Groin site with vac intact, serosang drainage
Surrounding skin intact
[2025-01-26 09:00] LABS: Hematocrit 38.8 % (37.0-47.0); Hemoglobin 12.2 g/dL (12.0-16.0); Mean Corp Hgb Conc. 31.4 g/dL (33.0-37.0); Mean Corpuscular Volume 85.3 fL (81.0-99.0); Nucleated Red Blood Cells % 0 %; Platelet Count 348 10^3/uL (130-400); Red Cell Dist. Width 14.9 % (11.5-14.5)
[2025-01-26 09:21] LABS: Blood Urea Nitrogen 18 mg/dl (7-17); Calcium 8.3 mg/dl (8.4-10.2); Carbon Dioxide 20 mmol/L (22-30); Chloride 110 mmol/L (98-107); Estimated Creatinine Clearance 46 ml/min; Glucose 137 mg/dl (70-99); Potassium 4.3 mmol/L (3.5-5.1); Sodium 139 mmol/L (135-145); eGFR > 60.00
[2025-01-26] MEDS: SINGULAIR 10 MG PO (09:37)
[2025-01-26] MEDS: LOW STRENGTH ASPIRIN 81 MG PO (09:37)
[2025-01-26] MEDS: DIOVAN 40 MG PO (09:37)
[2025-01-26] MEDS: NEURONTIN 300 MG PO ×2 (09:37→21:13)
[2025-01-26] MEDS: DESENEX/MITRAZOL/ZEASORB 1 APPLIC TOPICAL ×2 (09:38→21:13)
[2025-01-26] MEDS: NOVOLOG FLEXPEN-LOW RESISTANCE 1 UNITS SC ×2 (09:39→17:48)
[2025-01-26] MEDS: ALPHAGAN 0.2% EYE DROPS 1 DROP RIGHT EYE ×2 (09:41→21:13)
[2025-01-26] MEDS: PRED FORTE 1% EYE DROPS 1 DROP RIGHT EYE (09:41)
--- NOTE | 2025-01-26 09:54 | PHA.VAN.FU ---
Vancomycin Assessment / Plan
- Assessment
Renal Function: Stable
In the past 24 hrs, patient has been: Afebrile
Concomitant Antimicrobials: piperacillin/tazobactam
- Dosing Plan
Continue: Vanc 1000mg Q24H
- Monitoring Plan
No level(s) ordered at this time: consider levels in next few days
- Follow Up
Pharmacy will continue to follow.
Vancomycin Follow UP
- -
Patient Age: 79
Patient Sex: Female
Vancomycin Day #: 3
Indication: Skin And Soft Tissue
Requesting Provider: Marion Marquis PA-C
Height / Weight:
Height 4 ft 11 in
Actual Weight 77.383 kg
Pertinent Past Medical History: BMI ~35, DM II
- Vital Signs / Lab Results
Temp Pulse Resp BP Pulse Ox
97.6 F 71 16 128/63 96
01/26/25 07:15 01/26/25 07:15 01/26/25 07:15 01/26/25 09:37 01/26/25 07:15
Lab Results - Hematology
01/24/25 01/25/25 01/26/25
12:02 09:21 08:20
WBC 12.8 H 8.8 12.7 H
Lab Results - Chemistry
01/24/25 01/25/25 01/26/25
12:02 09:21 08:20
BUN 30 H 19 H 18 H
Creatinine 1.0 0.8 0.9
Estimated Creat Clear 52 46
Albumin 3.9
01/24/25 01/24/25 01/24/25
14:01 18:14 21:47
Lactic Acid 2.6 H 2.1 H 1.0
Microbiology Results
01/24/25 14:01 Blood Culture - Preliminary
Blood/Venous No Growth in 24 hours- Final report to follow
01/24/25 14:01 Blood Culture - Preliminary
Blood/Venous No Growth in 24 hours- Final report to follow
--- NOTE | 2025-01-26 10:18 | CM ---
patient seen at bedside
CM consult completed dc planning
IA completed
POD 1 Excisional debridement right groin necrotic skin and subcutaneous fatty tissue. Pulse lavage irrigation. Placement of wound VAC measuring 12 x 12 x 3 cm
Continue wound VAC, next change wednesday, Planning for DC after VAC change wednesday
Patient lives with her in a 2 story home, resides on 1st floor with bedroom/bathroom, ramp to get into home ,daughter lives next door
PLOF: Independent uses walker
DME: Walker, shower chair, grab bars
tt hospitalist for PT orders - PT to eval
patient stated had vn in past does not recall name of agency, had been in rehab in past does not recall agency, but did state that she did not have a positive experience and does not want rehab rather go home with VN (prefer [facility])
PCP: Rinku Hahn
Pharmacy: [address]
PLAN: anticipate home with VN, PT to eval, patient does not want SNF, CM to continue to follow
--- NOTE | 2025-01-26 10:26 | CON.ID ---
Addendum entered and electronically signed by Merari Garcia MD 01/26/25 14:03:
I personally performed a history and physical exam of the patient and discussed management with the resident. I reviewed the resident's note and agree with most of the documented findings and plan of care HPI/CC.
# Post-op R groin wound fat necrosis
# Recent R femoral endarterectomy 01/08/25
# Leukocytosis post-op
# DM2
-����� 01/25/25 s/p R groin I+D,lavage wound vac placement
OR finding subcutaneous fat necrosis , no abscess, no exposed artery, no exposed muscle flap
no OR cx obtained.
- Bcx neg to date.
- Check MRSA screen (pt from SNF and reports h/o MRSA)
- Can continue Vanco/zosyn for now.
- At time of dc, transition to doxycycline 100mg po bid and Augmentin 875mg po bid x 10 more days.
Original Note:
Consultation
-
Date/Time Consultation Requested: 01/26/25
Date/Time Consultation Performed: 01/26/25
Requesting Provider: Jack Grissom
Performing Provider: Dr. Merari Garcia
Reason for Consultation: R groin wound infection
Chief Complaint / Past History
Chief Complaint
Right groin wound infection
History of Present Illness
79-year-old female with past medical history of diabetes with diabetic neuropathy, hypertension, hyperlipidemia, COPD and peripheral vascular disease status post femoral endarterectomy with endarterectomized superficial femoral artery patch
angioplasty and sartorius muscle flap coverage by Dr. Sanchez 01/08/2025 presented to us from Dr. Sanchez's office for concerns of right groin surgical wound site infection. On 01/15/25, her nursing facility called the vascular surgery office because
they noticed some increased redness in the area. They started her on Augmentin and a thorough cleaning regimen. The wound progressively got more erythematous and started to 'smell.' She had an in office visit on 01/24 where they noted large
amount of seropurulent drainage and referred her to the ER. She had 2 drains placed with 5-30cc/day on average at the [place] [facility]. She denied any fevers, chills, nausea, vomiting, diarrhea, runny nose, sore throat, pleurisy, dysuria, hematuria.
She did notice some pain in the right groin area however she thought that was normal given she had the operation.
Of note, the patient did state she has had prior MRSA infections.
In the ED, she was afebrile however had a white count of 12.8 and lactic acidosis of 2.6. CT abdomen pelvis revealed nonorganized fluid and inflammation in the right groin status post right common femoral and profunda femoris endarterectomies.
There is no CTA evidence for arterial contrast extravasation or pseudoaneurysm. She was taken to the OR for debridement on 01/25/2025 which revealed a large island of necrotic skin and fatty tissue that did not appear to extend to the muscle flap.
The area was debrided until good healthy bleeding tissue was seen. Infectious disease was consulted for evaluation of right groin wound that persisted despite Augmentin use.
Past History
Past Medical History: Other
Additional Past Medical History:
Type 2 diabetes with peripheral neuropathy, essential hypertension, hyperlipidemia, COPD, peripheral vascular disease
Past Surgical History: Other
Additional Past Surgical History:
Right Common Femoral Endarterectomy / Profunda Femoral Artery Endarterectomy with Sartorius Muscle Flap Coverage 01/08/25 Dr. Sanchez
Right knee surgery
Multiple back surgeries
Cholecystectomy
Allergy History:
codeine Allergy (Verified 01/24/25 11:42)
Severe Nausea/vomiting/dizziness
Allergies
Allergy/AdvReac Type Severity Reaction Status Date / Time
codeine Allergy Severe Verified 01/24/25 11:42
Nausea/vomiting/dizziness
Home Medications
gabapentin 300 mg capsule 300 mg PO BID Pain 12/27/24
glimepiride 2 mg tablet 2 mg PO DAILY Diabetes 12/27/24
metformin 1,000 mg tablet 1,000 mg PO BID Diabetes 12/27/24
montelukast 10 mg tablet 10 mg PO DAILY Allergies 12/27/24
prednisolone acetate (PF) 1 % eye drops,suspension 1 drp RIGHT EYE Q48H Eye Condition 12/27/24
valsartan 40 mg tablet 40 mg PO DAILY Blood Pressure 12/27/24
aspirin 81 mg chewable tablet 81 mg PO DAILY Blood Clot Prevention/Tx 01/08/25
brimonidine 0.2 % eye drops 1 drp RIGHT EYE BID Eye Condition 01/08/25
empagliflozin 25 mg-linagliptin 5 mg tablet (Glyxambi) 1 tab PO DAILY Diabetes 01/08/25
meclizine 12.5 mg tablet 12.5 mg PO TID Neurological Condition 01/08/25
atorvastatin 10 mg tablet 10 mg PO QPM #90 tabs 01/12/25
cilostazol 100 mg tablet 100 mg PO BID 01/24/25
Current Antibiotics:
Vancomycin, Zosyn
Social History
Tobacco: Former Smoker (Quit in 2018)
Personal:
Family History
Family History: Not Pertinent
Review of Systems
Review of Systems
Musculoskeletal: Other (Right groin pain)
All systems: All other systems were reviewed and were negative
Vital Signs
Temp Pulse Resp BP Pulse Ox
97.6 F 71 16 128/63 96
01/26/25 07:15 01/26/25 07:15 01/26/25 07:15 01/26/25 09:37 01/26/25 07:15
Physical Exam
Physical Exam
Constitutional: No Acute Distress and Comfortable
Pharynx: Other (No pharyngeal erythema)
Oral: Other (Black hairy tongue)
Cardiovascular: Regular Rate and S1/S2
Pulmonary: Clear
Gastrointestinal: Soft, Non Tender, Non Distended and Normal Bowel Sounds
Genito-Urinary: Other (Right groin dressing with wound VAC placement-no purulence noted in wound VAC)
Neurological: AO x 3
Lab / Diagnostic Study Results
01/26/25 08:20
01/26/25 08:20
Abs Immat Gran (auto) 0.1 10^3/uL (0-0.05) H 01/26/25 08:20
Absolute Neuts (auto) 10.7 10^3/uL (1.4-6.5) H 01/26/25 08:20
Absolute Lymphs (auto) 0.9 10^3/uL (1.2-3.4) L 01/26/25 08:20
Absolute Monos (auto) 1.0 10^3/uL (0.1-0.6) H 01/26/25 08:20
Absolute Basos (auto) 0.0 10^3/uL (0-0.2) 01/26/25 08:20
Immature Gran % 0.7 % (0-0.5) H 01/26/25 08:20
Neutrophils % 84.1 % (42.2-75.2) H 01/26/25 08:20
Lymphocytes % 7.2 % (20.5-51.1) L 01/26/25 08:20
Monocytes % 7.5 % (1.7-9.3) 01/26/25 08:20
Eosinophils % 0.3 % (0-6) 01/26/25 08:20
Basophils % 0.2 % (0-2) 01/26/25 08:20
Lactic Acid 1.0 mmol/L (0.7-2.0) 01/24/25 21:47
Microbiology Results
Micro:
01/24/25 14:01 Blood Culture - Preliminary
Blood/Venous No Growth in 24 hours- Final report to follow
01/24/25 14:01 Blood Culture - Preliminary
Blood/Venous No Growth in 24 hours- Final report to follow
Imaging:
CT abdomen pelvis angio with and without IV contrast 01/24/2025:
Nonorganized fluid and inflammation in the right groin status post right common femoral and profunda femoris endarterectomies. No CTA evidence for arterial contrast extravasation or pseudoaneurysm.
Assessment / Plan
#Postop right groin wound infection
#Sepsis with lactic acidosis -lactic acidosis now resolved
# Peripheral artery disease status post right common femoral endarterectomy/profundofemoral artery enterectomy with sartorius muscle flap coverage on 01/08/2025
Prior to admission:
#Type 2 diabetes
#Diabetic neuropathy
#Hypertension
#Hyperlipidemia
#History of prior MRSA infections per patient
Recommendations:
Postop right groin wound infection
Sepsis with lactic acidosis -lactic acidosis now resolved
-- Status post wound debridement on 01/25/2025 with necrotic fatty tissue not extending to musculature
-- Currently on vancomycin and Zosyn - continue for now. At time of discharge will likely transition to doxycycline for MRSA coverage
-- Check MRSA swab
-- Blood cultures negative to date
Monitor WBC and temperature curve
[2025-01-26 11:30] VITALS: BP 124/52
--- NOTE | 2025-01-26 12:22 | W.PN.HOSP.TC ---
Today's Communication/Plan
-
Wound VAC
Broad-spectrum antibiotic
Monitor POC
Assessment / Plan
Assessment / Plan
General: Comfortable and Conversant
HEENT: Anicteric and Moist mucous membranes
Respiratory: Clear and Non Labored Respirations
Cardiac: S1/S2 and Regular Rhythm
GI: Soft and Non Tender
Rectal: Deferred by Provider
Musculoskeletal: No Clubbing and No Cyanosis
Skin: Right groin site reviewed with wound VAC dressing. Not much drainage in the wound VAC.
Neuro: Awake, Alert, Oriented and Nonfocal/grossly intact
Psych: Calm
Sepsis (as indicated by lactic acidosis of 2.6) secondary to post-op right groin wound infection
Lactic acidosis
-Lactate downtrended
-Continue Vancomycin / Zosyn
- Status post washout and excisional debridement of right groin necrotic skin and subcutaneous tissue per vascular surgery on 01/25. Wound VAC placed. Wound VAC will be next changed on Wednesday. Patient will need to stay in hospital.
- Broad-spectrum antibiotics for now and will have infectious disease evaluate patient
Peripheral Arterial Disease s/p Right Common Femoral Endarterectomy / Profunda Femoral Artery Endarterectomy with Sartorius Muscle Flap Coverage on 01/08/2025
-Continue aspirin and cilostazol
Diabetes Mellitus, Type II
-hold linagliptin. POC AM 150
-Monitor sugars and continue coverage insulin
-a1c 6.7 02/01
Diabetic Neuropathy
-Continue gabapentin
Essential Hypertension
-Continue valsartan
Hyperlipidemia
-Continue atorvastatin
DVT Proph: Lovenox
Code Status: Full Code
PT eval cleared by surgery
Anticipated Discharge: > 48 hours
Subjective/Interval History
-
Date of Service: January 26, 2025
States some mild discomfort at the right groin site
Objective Data
-
Labs:
Laboratory Results
01/26/25
08:20
WBC 12.7 H
Hgb 12.2
Hct 38.8
Plt Count 348 D
Sodium 139
Potassium 4.3
Chloride 110 H
Carbon Dioxide 20 L
BUN 18 H
Creatinine 0.9
Glucose 137 H
Calcium 8.3 L
Vital Signs:
Vital Signs
Temp Pulse Resp BP Pulse Ox
97.8 F 73 16 124/52 99
01/26/25 11:30 01/26/25 11:30 01/26/25 11:30 01/26/25 11:30 01/26/25 11:30
I&O
01/25/25 01/26/25 01/27/25
06:59 06:59 06:59
Intake Total 2380 / 2380 1290 / 1290 480 / 480
Output Total 1150 / 1150
Balance 2350 / 2350 140 / 140 480 / 480
Data Reviewed
-
Total Time Spent with Patient (in minutes): 55
[2025-01-26 12:37] LABS: Glucose - Point of Care 148 mg/dl (70-99)
[2025-01-26] MEDS: NOVOLOG FLEXPEN-LOW RESISTANCE SC (13:13)
--- NOTE | 2025-01-26 14:30 | WOUNDNOTE ---
WOC RN note: Faxed [facility] paperwork request to Jayla Rossi from [facility] [place].
[2025-01-26 14:56] VITALS: BP 135/58; PULSE 88; O2SAT 95
[2025-01-26 15:15] VITALS: BP 107/71
--- NOTE | 2025-01-26 15:38 | VNURNOTE ---
Addendum entered by Andreia Julian RN 01/29/25 14:20:
Rec'ed update from [facility] that pt is current with [facility]. They plan on resuming services. Updated [facility] Intake that pt current with other agency. [facility] non-admit.
Original Note:
Home Health Liaison met with patient at bedside to discuss [facility] nurse/therapy, visits, schedule and homebound status. Patient is agreeable and understands that visits at home will be 2-3 x per week to assess and teach medical and ostomy
management.
Patient is aware that [facility] will contact them for start of care within a few days after discharge from . Provided contact number for [facility].
[facility] referral completed in [facility].
[2025-01-26 16:38] LABS: Glucose - Point of Care 158 mg/dl (70-99)
[2025-01-26] MEDS: LIPITOR 10 MG PO (17:49)
[2025-01-26] MEDS: LOVENOX 40 MG SC (17:49)
--- NOTE | 2025-01-26 18:53 | WOUNDNOTE ---
[facility] RN Note: received notification from [facility] that the insurance policy number on the patient's Demo/face sheet is incorrect. T/c Spoke with patient's daughter Mallory who will get the policy number off patient's Medicare card which is at home
with patient's . Mallory will leave this magazine writer a VM of the policy number. Suggested they bring in a copy of her Medicare card when visiting this weekend to give to the nurse or patrol community service officer. Will follow up on Wednesday.
[2025-01-26] MEDS: COMPAZINE 10 MG IV (20:36)
[2025-01-26 21:10] LABS: Glucose - Point of Care 157 mg/dl (70-99)
[2025-01-26 23:04] VITALS: BP 143/66
[2025-01-27] MEDS: ZOSYN 50 IV ×4 (02:48→20:51)
[2025-01-27 05:44] VITALS: BMI 34.0
[2025-01-27] MEDS: VANCOCIN 200 IV (05:58)
[2025-01-27 07:28] LABS: Glucose - Point of Care 136 mg/dl (70-99)
[2025-01-27 07:31] VITALS: BP 160/80
[2025-01-27 07:43] LABS: Blood Urea Nitrogen 17 mg/dl (7-17); Calcium 7.9 mg/dl (8.4-10.2); Carbon Dioxide 21 mmol/L (22-30); Chloride 109 mmol/L (98-107); Estimated Creatinine Clearance 38 ml/min; Glucose 99 mg/dl (70-99); Potassium 3.7 mmol/L (3.5-5.1); Sodium 137 mmol/L (135-145); eGFR 51.43
[2025-01-27] MEDS: FARXIGA 10 MG PO (08:15)
[2025-01-27] MEDS: NEURONTIN 300 MG PO ×2 (08:15→20:51)
[2025-01-27] MEDS: LOW STRENGTH ASPIRIN 81 MG PO (08:15)
[2025-01-27] MEDS: DIOVAN 40 MG PO (08:15)
[2025-01-27] MEDS: DESENEX/MITRAZOL/ZEASORB 1 APPLIC TOPICAL ×2 (08:16→20:52)
[2025-01-27] MEDS: SINGULAIR 10 MG PO (08:17)
[2025-01-27] MEDS: ALPHAGAN 0.2% EYE DROPS 1 DROP RIGHT EYE ×2 (08:17→20:51)
[2025-01-27] MEDS: NOVOLOG FLEXPEN-LOW RESISTANCE SC ×3 (08:17→17:42)
[2025-01-27 08:28] LABS: Hematocrit 34.4 % (37.0-47.0); Hemoglobin 10.8 g/dL (12.0-16.0); Mean Corp Hgb Conc. 31.4 g/dL (33.0-37.0); Mean Corpuscular Volume 84.9 fL (81.0-99.0); Nucleated Red Blood Cells % 0 %; Platelet Count 263 10^3/uL (130-400); Red Cell Dist. Width 15.0 % (11.5-14.5)
--- NOTE | 2025-01-27 08:43 | PHA.VAN.FU ---
Vancomycin Assessment / Plan
- Assessment
Renal Function: SCR Increasing
WBC's are: WNL
In the past 24 hrs, patient has been: Afebrile
Concomitant Antimicrobials: PIPERACILLIN/TAZOBACTAM
- Dosing Plan
Adjust Regimen to: DOSE BY LEVEL CONSIDERING INCREASING SCR
- Monitoring Plan
Random Level: 01/28 @0600
- Follow Up
Pharmacy will continue to follow.
Vancomycin Follow UP
- -
Patient Age: 79
Patient Sex: Female
Vancomycin Day #: 4
Indication: Skin And Soft Tissue
Requesting Provider: Marion Marquis PA-C
Height / Weight:
Height 4 ft 11 in
Actual Weight 76.26 kg
Pertinent Past Medical History: BMI ~35, DM II
- Vital Signs / Lab Results
Temp Pulse Resp BP Pulse Ox
98.3 F 104 18 160/80 84
01/27/25 07:31 01/27/25 07:31 01/27/25 07:31 01/27/25 08:15 01/27/25 07:31
Lab Results - Hematology
01/24/25 01/25/25 01/26/25
12:02 09:21 08:20
WBC 12.8 H 8.8 12.7 H
01/27/25
05:50
WBC 6.7
Lab Results - Chemistry
01/24/25 01/25/25 01/26/25
12:02 09:21 08:20
BUN 30 H 19 H 18 H
Creatinine 1.0 0.8 0.9
Estimated Creat Clear 52 46
Albumin 3.9
01/27/25
05:50
BUN 17
Creatinine 1.1 H
Estimated Creat Clear 38
Albumin
01/24/25 01/24/25 01/24/25
14:01 18:14 21:47
Lactic Acid 2.6 H 2.1 H 1.0
Microbiology Results
01/24/25 14:01 Blood Culture - Preliminary
Blood/Venous No Growth in 48 hours- Final report to follow
01/24/25 14:01 Blood Culture - Preliminary
Blood/Venous No Growth in 48 hours- Final report to follow
--- NOTE | 2025-01-27 10:35 | W.PN.ID1 ---
Date of Service
Date of Service: January 27, 2025
Today's Communication
Continue Vanco/Zosyn
Assessment / Plan
# Post-op R groin wound fat necrosis
Recent R femoral endarterectomy 01/08/25
# Leukocytosis post-op - resolved
# DM2
-����� 01/25/25 s/p R groin I+D,lavage wound vac placement
OR finding subcutaneous fat necrosis , no abscess, no exposed artery, no exposed muscle flap
No OR cx obtained.
- Bcx neg to date.
- MRSA screen pending (pt from SNF and reports h/o MRSA)
- Can continue Vanco/zosyn for now.
- At time of dc, transition to doxycycline 100mg po bid and Augmentin 875mg po bid x 10 more days.
Prior to admission:
#Type 2 diabetes
#Diabetic neuropathy
#Hypertension
#Hyperlipidemia
#History of prior MRSA infections per patient
# PAD s/p R Common Femoral Endarterectomy / Profunda Femoral Artery Endarterectomy with Sartorius Muscle Flap Coverage
Subjective / Review of Systems
No complaints.
Vital Signs / Physical Exam
Vital Signs
Vital Signs
Temp Pulse Resp BP Pulse Ox
98.3 F 104 18 160/80 84
01/27/25 07:31 01/27/25 07:31 01/27/25 07:31 01/27/25 08:15 01/27/25 07:31
Physical Exam
Constitutional: No Acute Distress and Comfortable
Cardiovascular: Regular Rate and S1/S2
Pulmonary: Clear
Gastrointestinal: Soft, Non Tender, Non Distended and Normal Bowel Sounds
Extremities: Negative Edema
Wound: Other (R groin wound vac in place)
Neurological: AO x 3
Objective Data
Lab Data
Lab Results
01/27/25 05:50
01/27/25 05:50
Estimated Creat Clear 38 ml/min 01/27/25 05:50
Lactic Acid 1.0 mmol/L (0.7-2.0) 01/24/25 21:47
Total Bilirubin 0.6 mg/dl (0.2-1.3) 01/24/25 12:02
AST 22 U/L (14-36) 01/24/25 12:02
ALT 20 U/L (0-35) 01/24/25 12:02
Alkaline Phosphatase 91 U/L (38-126) 01/24/25 12:02
Most recent labs reviewed.
Micro Results:
01/26/25 16:15 MRSA Screen - Pending
Nose
01/24/25 14:01 Blood Culture - Preliminary
Blood/Venous No Growth in 48 hours- Final report to follow
01/24/25 14:01 Blood Culture - Preliminary
Blood/Venous No Growth in 48 hours- Final report to follow
Imaging:
CT abdomen pelvis angio with and without IV contrast 01/24/2025:
Nonorganized fluid and inflammation in the right groin status post right common femoral and profunda femoris endarterectomies. No CTA evidence for arterial contrast extravasation or pseudoaneurysm.
[2025-01-27 12:04] LABS: Glucose - Point of Care 145 mg/dl (70-99)
--- NOTE | 2025-01-27 13:26 | W.PN.HOSP.TC ---
Today's Communication/Plan
-
Wean oxygen
Incentive spirometry
Bronchodilators
Check chest x-ray
Assessment / Plan
Assessment / Plan
General: Comfortable and Conversant
HEENT: Anicteric and Moist mucous membranes
Respiratory: Clear and Non Labored Respirations
Cardiac: S1/S2 and Regular Rhythm
GI: Soft and Non Tender
Rectal: Deferred by Provider
Musculoskeletal: No Clubbing and No Cyanosis
Skin: Right groin site reviewed with wound VAC dressing. serosanginous/blood drainage noted in wound vac
Neuro: Awake, Alert, Oriented and Nonfocal/grossly intact
Psych: Calm
Postop right groin wound fat necrosis suspected
Lactic acidosis
-Lactate downtrended
-Continue Vancomycin / Zosyn
- Status post washout and excisional debridement of right groin necrotic skin and subcutaneous tissue per vascular surgery on 01/25. No OR cultures were obtained. Wound VAC placed. Wound VAC will be next changed on Wednesday. Patient will need to
stay in hospital.
- Broad-spectrum antibiotics for now and upon discharge transition to doxycycline and Augmentin
Peripheral Arterial Disease s/p Right Common Femoral Endarterectomy / Profunda Femoral Artery Endarterectomy with Sartorius Muscle Flap Coverage on 01/08/2025
-Continue aspirin and cilostazol
Acute hypoxic respiratory insufficiency
- Incentive spirometry encouraged
- Check a chest x-ray.
- Not on fluids. Postop.
- DuoNebs for now.
Diabetes Mellitus, Type II
-hold linagliptin. POC AM 150
-Monitor sugars and continue coverage insulin
-a1c 6.7 02/01
Diabetic Neuropathy
-Continue gabapentin
Essential Hypertension
-Continue valsartan
Hyperlipidemia
-Continue atorvastatin
History of heavy tobacco abuse
- Not currently smoking
DVT Proph: Lovenox
Code Status: Full Code
PT eval home health
Anticipated Discharge: > 48 hours
Subjective/Interval History
-
Date of Service: January 27, 2025
remains on oxygen
mild R groin discomfort
Objective Data
-
Labs:
Laboratory Results
01/27/25
05:50
WBC 6.7
Hgb 10.8 L
Hct 34.4 L
Plt Count 263 D
Sodium 137
Potassium 3.7
Chloride 109 H
Carbon Dioxide 21 L
BUN 17
Creatinine 1.1 H
Glucose 99
Calcium 7.9 L
Vital Signs:
Vital Signs
Temp Pulse Resp BP Pulse Ox
98.3 F 104 18 160/80 84
01/27/25 07:31 01/27/25 07:31 01/27/25 07:31 01/27/25 08:15 01/27/25 07:31
I&O
01/26/25 01/27/25 01/28/25
06:59 06:59 06:59
Intake Total 1290 / 1290 640 / 640 100 / 100
Output Total 1150 / 1150
Balance 140 / 140 640 / 640 100 / 100
Data Reviewed
-
Total Time Spent with Patient (in minutes): 55
[2025-01-27] MEDS: DUONEB 3 ML INH ×2 (14:12→20:33)
[2025-01-27 15:18] VITALS: BP 136/58
[2025-01-27 17:33] LABS: Glucose - Point of Care 125 mg/dl (70-99)
[2025-01-27] MEDS: LIPITOR 10 MG PO (17:45)
[2025-01-27] MEDS: LOVENOX 40 MG SC (17:45)
[2025-01-27 21:51] LABS: Glucose - Point of Care 94 mg/dl (70-99)
[2025-01-27 23:34] VITALS: BP 144/68
[2025-01-28] MEDS: ZOSYN 50 IV ×4 (02:08→20:25)
[2025-01-28 05:10] VITALS: BMI 34.2
[2025-01-28 06:57] LABS: Hematocrit 35.2 % (37.0-47.0); Hemoglobin 10.8 g/dL (12.0-16.0); Mean Corp Hgb Conc. 30.7 g/dL (33.0-37.0); Mean Corpuscular Volume 83.2 fL (81.0-99.0); Nucleated Red Blood Cells % 0 %; Platelet Count 227 10^3/uL (130-400); Red Cell Dist. Width 15.1 % (11.5-14.5)
[2025-01-28 07:02] LABS: Blood Urea Nitrogen 20 mg/dl (7-17); Calcium 7.8 mg/dl (8.4-10.2); Carbon Dioxide 21 mmol/L (22-30); Chloride 106 mmol/L (98-107); Estimated Creatinine Clearance 41 ml/min; Glucose 84 mg/dl (70-99); Potassium 3.8 mmol/L (3.5-5.1); Sodium 135 mmol/L (135-145); eGFR 57.66
[2025-01-28 07:15] LABS: Glucose - Point of Care 85 mg/dl (70-99)
--- NOTE | 2025-01-28 07:43 | PHA.VAN.FU ---
Vancomycin Assessment / Plan
- Assessment
Renal Function: SCR Decreasing
WBC's are: WNL
In the past 24 hrs, patient has been: Afebrile
Concomitant Antimicrobials: PIPERACILLIN/TAZOBACTAM
- Assessment - Therapeutic Drug Monitoring
Random Level: 10.7 DRAWN ~24 HOURS AFTER PREVIOUS VANCO 1000MG
- Dosing Plan
Adjust Regimen to: VANCO 1000MG Q24H
New Regimen Predicts: AUC (478), Peak (30.2), Trough (12.2)
- Monitoring Plan
Peak Level: 01/28 @1100
Trough Level: 01/29 @0530
- Follow Up
Pharmacy will continue to follow.
Vancomycin Follow UP
- -
Patient Age: 79
Patient Sex: Female
Vancomycin Day #: 5
Indication: Skin And Soft Tissue
Requesting Provider: Marion Marquis PA-C
Height / Weight:
Height 4 ft 11 in
Actual Weight 76.657 kg
Pertinent Past Medical History: BMI ~35, DM II
- Vital Signs / Lab Results
Temp Pulse Resp BP Pulse Ox
99.6 F 98 18 144/68 95
01/27/25 23:34 01/27/25 23:34 01/27/25 23:34 01/27/25 23:34 01/27/25 23:34
Lab Results - Hematology
01/25/25 01/26/25 01/27/25
09:21 08:20 05:50
WBC 8.8 12.7 H 6.7
01/28/25
05:44
WBC 5.4
Lab Results - Chemistry
01/25/25 01/26/25 01/27/25
09:21 08:20 05:50
BUN 19 H 18 H 17
Creatinine 0.8 0.9 1.1 H
Estimated Creat Clear 52 46 38
01/28/25
05:44
BUN 20 H
Creatinine 1.0
Estimated Creat Clear 41
Microbiology Results
01/24/25 14:01 Blood Culture - Preliminary
Blood/Venous No Growth in 72 hours- Final report to follow
01/24/25 14:01 Blood Culture - Preliminary
Blood/Venous No Growth in 72 hours- Final report to follow
Therapeutic Drug Monitoring
Random Vancomycin 10.7 ug/ml 01/28/25 05:44
[2025-01-28] MEDS: FARXIGA 10 MG PO (09:05)
[2025-01-28] MEDS: LOW STRENGTH ASPIRIN 81 MG PO (09:05)
[2025-01-28] MEDS: PRED FORTE 1% EYE DROPS 1 DROP RIGHT EYE (09:05)
[2025-01-28] MEDS: NOVOLOG FLEXPEN-LOW RESISTANCE SC ×3 (09:05→18:22)
[2025-01-28] MEDS: NEURONTIN 300 MG PO ×2 (09:06→20:25)
[2025-01-28] MEDS: ALPHAGAN 0.2% EYE DROPS 1 DROP RIGHT EYE ×2 (09:06→20:26)
[2025-01-28] MEDS: DIOVAN 40 MG PO (09:06)
[2025-01-28] MEDS: SINGULAIR 10 MG PO (09:06)
[2025-01-28] MEDS: VANCOCIN 200 IV (09:07)
[2025-01-28 10:05] VITALS: BP 188/91
[2025-01-28] MEDS: DESENEX/MITRAZOL/ZEASORB 1 APPLIC TOPICAL ×2 (10:43→20:25)
--- NOTE | 2025-01-28 11:28 | W.PN.HOSP.TC ---
Today's Communication/Plan
-
IV abx for now
Wound vac change tomm per surgery
wean o2
IS encourage
oob
Assessment / Plan
Assessment / Plan
General: Comfortable and Conversant
HEENT: Anicteric and Moist mucous membranes
Respiratory: Clear and Non Labored Respirations, nasal cannula 2l noted
Cardiac: S1/S2 and Regular Rhythm
GI: Soft and Non Tender
Rectal: Deferred by Provider
Musculoskeletal: No Clubbing and No Cyanosis
Skin: Right groin site reviewed with wound VAC dressing. serosanginous/blood drainage noted in wound vac
Neuro: Awake, Alert, Oriented and Nonfocal/grossly intact
Psych: Calm
Postop right groin wound fat necrosis suspected
Lactic acidosis
-Lactate downtrended
-Continue Vancomycin / Zosyn
- Status post washout and excisional debridement of right groin necrotic skin and subcutaneous tissue per vascular surgery on 01/25. No OR cultures were obtained. Wound VAC placed. Wound VAC will be next changed on Wednesday. Patient will need to
stay in hospital.
- Broad-spectrum antibiotics for now and upon discharge transition to doxycycline and Augmentin
Peripheral Arterial Disease s/p Right Common Femoral Endarterectomy / Profunda Femoral Artery Endarterectomy with Sartorius Muscle Flap Coverage on 01/08/2025
-Continue aspirin and cilostazol
Acute hypoxic respiratory insufficiency
Hx of tobacco abuse
- Incentive spirometry encouraged
- Check a chest x-ray Mild opacity in the left lung base, atelectasis versus pneumonia. No pleural effusion or pneumothorax. Stable cardiomediastinal silhouette. Chronic degenerative changes of the spine. Partially imaged posterior cervical fusion
hardware
- Not on fluids. Postop.
- DuoNebs for now. Wean o2 as tolerated
Diabetes Mellitus, Type II
-hold linagliptin. POC AM 85
-Monitor sugars and continue coverage insulin
-a1c 6.7 02/01
Diabetic Neuropathy
-Continue gabapentin
Essential Hypertension
-Continue valsartan
Hyperlipidemia
-Continue atorvastatin
History of heavy tobacco abuse
- Not currently smoking
DVT Proph: Lovenox
Code Status: Full Code
PT eval home health
Anticipated Discharge: 24 - 48 hours
Subjective/Interval History
-
Date of Service: January 28, 2025
was sob yesterday
remains on oxygen
denies sob this morning or cough
Objective Data
-
Labs:
Laboratory Results
01/28/25
05:44
WBC 5.4
Hgb 10.8 L
Hct 35.2 L
Plt Count 227
Sodium 135
Potassium 3.8
Chloride 106
Carbon Dioxide 21 L
BUN 20 H
Creatinine 1.0
Glucose 84
Calcium 7.8 L
Vital Signs:
Vital Signs
Temp Pulse Resp BP Pulse Ox
98.8 F 103 16 188/91 90
01/28/25 10:05 01/28/25 10:05 01/28/25 10:05 01/28/25 10:05 01/28/25 10:05
I&O
01/27/25 01/28/25 01/29/25
06:59 06:59 06:59
Intake Total 640 / 640 880 / 880 240 / 240
Balance 640 / 640 880 / 880 240 / 240
--- NOTE | 2025-01-28 11:41 | W.PN.ID1 ---
Date of Service
Date of Service: January 28, 2025
Today's Communication
At time of dc tomorrow, transition to doxycycline 100mg po bid and Augmentin 875mg po bid x 10 more days.
Assessment / Plan
# Post-op R groin wound fat necrosis
Recent R femoral endarterectomy 01/08/25
# Leukocytosis post-op - resolved
# DM2
-����� 01/25/25 s/p R groin I+D,lavage wound vac placement
OR finding subcutaneous fat necrosis , no abscess, no exposed artery, no exposed muscle flap
No OR cx obtained.
- Bcx neg to date.
- MRSA screen negative (pt from SNF and reports h/o MRSA)
- Can continue Vanco/zosyn for now.
- At time of dc tomorrow, transition to doxycycline 100mg po bid and Augmentin 875mg po bid x 10 more days.
Prior to admission:
#Type 2 diabetes
#Diabetic neuropathy
#Hypertension
#Hyperlipidemia
#History of prior MRSA infections per patient
# PAD s/p R Common Femoral Endarterectomy / Profunda Femoral Artery Endarterectomy with Sartorius Muscle Flap Coverage
Chief Complaint
-: Other (Groin wound)
Subjective / Review of Systems
No new complaints.
Vital Signs / Physical Exam
Vital Signs
Vital Signs
Temp Pulse Resp BP Pulse Ox
98.8 F 103 16 188/91 90
01/28/25 10:05 01/28/25 10:05 01/28/25 10:05 01/28/25 10:05 01/28/25 10:05
Physical Exam
Constitutional: No Acute Distress and Comfortable
Cardiovascular: Regular Rate and S1/S2
Pulmonary: Clear
Gastrointestinal: Soft, Non Tender, Non Distended and Normal Bowel Sounds
Extremities: Negative Edema
Wound: Other (R groin wound vac in place)
Neurological: AO x 3
Objective Data
Lab Data
Lab Results
01/28/25 05:44
01/28/25 05:44
Estimated Creat Clear 41 ml/min 01/28/25 05:44
Lactic Acid 1.0 mmol/L (0.7-2.0) 01/24/25 21:47
Total Bilirubin 0.6 mg/dl (0.2-1.3) 01/24/25 12:02
AST 22 U/L (14-36) 01/24/25 12:02
ALT 20 U/L (0-35) 01/24/25 12:02
Alkaline Phosphatase 91 U/L (38-126) 01/24/25 12:02
Most recent labs reviewed.
Micro Results:
01/26/25 16:15 MRSA Screen - Final
Nose No Methicillin Resistant Staphylococcus aureus isolated.
01/24/25 14:01 Blood Culture - Preliminary
Blood/Venous No Growth in 72 hours- Final report to follow
01/24/25 14:01 Blood Culture - Preliminary
Blood/Venous No Growth in 72 hours- Final report to follow
Imaging:
CT abdomen pelvis angio with and without IV contrast 01/24/2025:
Nonorganized fluid and inflammation in the right groin status post right common femoral and profunda femoris endarterectomies. No CTA evidence for arterial contrast extravasation or pseudoaneurysm.
[2025-01-28 11:55] LABS: Glucose - Point of Care 127 mg/dl (70-99)
[2025-01-28] MEDS: MYCOSTATIN ORAL SUSPENSION 5 ML PO ×3 (13:22→21:38)
[2025-01-28 15:13] VITALS: BP 98/68
[2025-01-28 16:40] VITALS: BP 149/66
[2025-01-28 18:14] LABS: Glucose - Point of Care 93 mg/dl (70-99)
[2025-01-28] MEDS: LIPITOR 10 MG PO (18:38)
[2025-01-28] MEDS: LOVENOX 40 MG SC (18:40)
[2025-01-28 22:03] LABS: Glucose - Point of Care 125 mg/dl (70-99)
[2025-01-28 23:00] VITALS: BP 133/63
[2025-01-29] MEDS: ZOSYN 50 IV ×3 (01:52→13:06)
[2025-01-29 06:00] VITALS: BMI 34.1
[2025-01-29] MEDS: VANCOCIN 200 IV (06:22)
[2025-01-29 06:38] LABS: Hematocrit 34.3 % (37.0-47.0); Hemoglobin 10.7 g/dL (12.0-16.0); Mean Corp Hgb Conc. 31.2 g/dL (33.0-37.0); Mean Corpuscular Volume 83.9 fL (81.0-99.0); Nucleated Red Blood Cells % 0 %; Platelet Count 216 10^3/uL (130-400); Red Cell Dist. Width 15.0 % (11.5-14.5)
[2025-01-29 06:45] LABS: Blood Urea Nitrogen 21 mg/dl (7-17); Calcium 7.7 mg/dl (8.4-10.2); Carbon Dioxide 22 mmol/L (22-30); Chloride 109 mmol/L (98-107); Estimated Creatinine Clearance 38 ml/min; Glucose 90 mg/dl (70-99); Potassium 3.3 mmol/L (3.5-5.1); Sodium 137 mmol/L (135-145); eGFR 51.43
[2025-01-29 07:32] LABS: Glucose - Point of Care 118 mg/dl (70-99)
--- NOTE | 2025-01-29 07:33 | WOUNDNOTE ---
[facility] RN note: Patient's daughter Vilma left this business writer a voicemail and email stating she looked at patient's Medicare card and verified the number on her card is the same as the policy number on the Facesheet from patient's DH chart. Emailed this
information to Jayla Rossi and Maria L Montemayor from [facility].
[2025-01-29 08:16] VITALS: BP 150/78
[2025-01-29] MEDS: NOVOLOG FLEXPEN-LOW RESISTANCE SC ×3 (08:43→17:12)
[2025-01-29] MEDS: MYCOSTATIN ORAL SUSPENSION 5 ML PO ×2 (08:45→13:06)
[2025-01-29] MEDS: FARXIGA 10 MG PO (08:45)
[2025-01-29] MEDS: DIOVAN 40 MG PO (08:45)
[2025-01-29] MEDS: NEURONTIN 300 MG PO (08:45)
[2025-01-29] MEDS: ALPHAGAN 0.2% EYE DROPS 1 DROP RIGHT EYE (08:45)
[2025-01-29] MEDS: LOW STRENGTH ASPIRIN 81 MG PO (08:45)
[2025-01-29] MEDS: SINGULAIR 10 MG PO (08:45)
--- NOTE | 2025-01-29 10:03 | W.PN.HOSP.TC ---
Addendum entered and electronically signed by Jonas Hernandez DO 01/29/25 15:35:
Hypokalemia -repleted. Magnesium 2.1.
Addendum entered and electronically signed by Jonas Hernandez, 01/29/25 15:34:
Patient is in need of oxygen on exertion due to pulse oximetry of 89% on room air at rest; 88% on room air with exertion.
Patient was placed on 2L O2 via nasal cannula with saturation of 95%. Oxygen will help to improve hypoxemia.
Patient is mobile within the home. Albuterol therapy has been discussed and is ineffective in treating hypoxemia-related symptoms.
Oxygen will improve the patient's symptoms.
Original Note:
Today's Communication/Plan
-
Discharge planning
Assessment / Plan
Assessment / Plan
General: Comfortable and Conversant
HEENT: Anicteric and Moist mucous membranes
Respiratory: Clear and Non Labored Respirations
Cardiac: S1/S2 and Regular Rhythm
GI: Soft and Non Tender
Rectal: Deferred by Provider
Musculoskeletal: No Clubbing and No Cyanosis
Skin: Right groin site reviewed with wound VAC dressing. serosanginous/blood drainage noted in wound vac
Neuro: Awake, Alert, Oriented and Nonfocal/grossly intact
Psych: Calm
Postop right groin wound fat necrosis suspected
Lactic acidosis
-Lactate downtrended
-Continue Vancomycin / Zosyn, change to Augmentin and doxycycline on discharge per infectious disease for 10 more days.
- Status post washout and excisional debridement of right groin necrotic skin and subcutaneous tissue per vascular surgery on 01/25. No OR cultures were obtained. Wound VAC placed. Wound VAC will be next changed on Wednesday.
Peripheral Arterial Disease s/p Right Common Femoral Endarterectomy / Profunda Femoral Artery Endarterectomy with Sartorius Muscle Flap Coverage on 01/08/2025
-Continue aspirin and cilostazol
Acute hypoxic respiratory insufficiency -improved, now stable on room air.
Hx of tobacco abuse
- Incentive spirometry encouraged
- Check a chest x-ray Mild opacity in the left lung base, atelectasis versus pneumonia. No pleural effusion or pneumothorax. Stable cardiomediastinal silhouette. Chronic degenerative changes of the spine. Partially imaged posterior cervical fusion
hardware
- Not on fluids. Postop.
- DuoNebs for now. Wean o2 as tolerated
Diabetes Mellitus, Type II
-hold linagliptin. POC AM 85
-Monitor sugars and continue coverage insulin
-a1c 6.7 02/01
Diabetic Neuropathy
-Continue gabapentin
Essential Hypertension
-Continue valsartan
Hyperlipidemia
-Continue atorvastatin
History of heavy tobacco abuse
- Not currently smoking
DVT Proph: Lovenox
Code Status: Full Code
PT eval home health
Dispo -medically stable for discharge home today after wound VAC change. Need to ensure VAC is available at home. Visiting nursing. Outpatient follow-up.
Anticipated Discharge: Today
Subjective/Interval History
-
Date of Service: January 29, 2025
Patient seen and examined. No complaints.
Objective Data
-
Labs:
Laboratory Results
01/29/25
05:59
WBC 4.6 L
Hgb 10.7 L
Hct 34.3 L
Plt Count 216
Sodium 137
Potassium 3.3 L
Chloride 109 H
Carbon Dioxide 22
BUN 21 H
Creatinine 1.1 H
Glucose 90
Calcium 7.7 L
Vital Signs:
Vital Signs
Temp Pulse Resp BP Pulse Ox
97.9 F 88 18 150/78 93
01/29/25 08:16 01/29/25 08:16 01/29/25 08:16 01/29/25 08:16 01/29/25 08:16
I&O
01/28/25 01/29/2525
06:59 06:59 06:59
Intake Total 880 / 880 1020 / 1020
Balance 880 / 880 1020 / 1020
Review of Systems
-
History Source: Patient
All other systems: Reviewed and negative
--- NOTE | 2025-01-29 10:06 | WOUNDNOTE ---
[facility] RN note: Merari from [facility] notified this newspaper writer that the [facility] vac has been approved. Will bring up when discharge is confirmed.
[2025-01-29] MEDS: DESENEX/MITRAZOL/ZEASORB 1 APPLIC TOPICAL (10:32)
[2025-01-29] MEDS: KCL 40 MEQ PO (10:32)
--- NOTE | 2025-01-29 10:54 | CM ---
Addendum entered by Alma Dougherty 01/29/25 11:23:
Reviewed with COUNTS INCLUDE 234 BEDS AT THE [facility], due to previous acceptance by [facility], CM will review with patient wishes.
Original Note:
Patient seen at bedside on . Patient currently on O2. Patient nurse to work with patient and confirm need for home O2. Patient for discharge home with [facility] and CM spoke with liaison and they are planning to see patient when
discharged. Patient with home wound Vac, Wound Care working on delivery of wound vac today. CM provided IMM and patient to review with family. CM will continue to follow for discharge planning needs.
Plan; Home with [facility], wound Vac and watch for transportation needs
[2025-01-29 11:21] LABS: Magnesium 2.1 mg/dl (1.6-2.3)
--- NOTE | 2025-01-29 11:30 | WOUNDNOTE ---
BUTTOCKS/THIGHS (POSTERIOR)
--- NOTE | 2025-01-29 11:42 | W.PN.VS ---
Addendum entered and electronically signed by LAVELL Marie 01/29/25 12:02:
Right groin
Original Note:
Today's Communication / Plan
-
Below plan reviewed with production scheduler attending.
Assessment/Plan
-
POD 4 Excisional debridement right groin necrotic skin and subcutaneous fatty tissue. Pulse lavage irrigation. Placement of wound VAC measuring 12 x 12 x 3 cm
Plan:
Continue wound VAC, home vac at bedside
From a vascular surgical perspective cleared for DC
Will place office follow up in chart
Subjective Data
-
Date of Service: January 29, 2025
Patient seen and examined at bedside, offers no complaints. Denies nausea, vomiting, fever, and chills.
Objective Data
-
Vital Signs
Temp Pulse Resp BP Pulse Ox
97.9 F 88 18 150/78 92
01/29/25 08:16 01/29/25 08:16 01/29/25 08:16 01/29/25 08:16 01/29/25 11:00
Intake and Output
01/28/25 01/29/25 01/30/25
06:59 06:59 06:59
Intake Total 880 / 880 1020 / 1020
Balance 880 / 880 1020 / 1020
Intake:
Oral fluids 780 / 780 720 / 720
IV piggybacks 100 / 100 300 / 300
Other:
How many times incontinent 1
MODERATE amount urine
How many times incontinent 2 2
SATURATED amount urine
Number of approximated LARGE 1 1
amounts of urine
Lab Results
01/29/25 05:59
01/29/25 05:59
Calcium 7.7 mg/dl (8.4-10.2) L 01/29/25 05:59
Magnesium 2.1 mg/dl (1.6-2.3) 01/29/25 05:59
Total Bilirubin 0.6 mg/dl (0.2-1.3) 01/24/25 12:02
AST 22 U/L (14-36) 01/24/25 12:02
ALT 20 U/L (0-35) 01/24/25 12:02
Alkaline Phosphatase 91 U/L (38-126) 01/24/25 12:02
Total Protein 6.9 g/dl (6.3-8.2) 01/24/25 12:02
Albumin 3.9 g/dl (3.5-5.0) 01/24/25 12:02
Physical Exam
-
AAox3
No tachypnea
No tachycardia
Abd soft
Groin site vac changed 12cm length x 10cm width x 3cm depth, site CDI, wound bed tissue appers healthy and viable, new vac placed
[2025-01-29 11:45] VITALS: PULSE 88; O2SAT 89
--- NOTE | 2025-01-29 12:15 | WOUNDNOTE ---
[facility] RN note: Delivered patient's ready care vac. Patient signed [facility] home care vac proof of delivery form. t/c Spoke with daughter Mallory who will be in at 3pm and will plan to do home vac teaching and switch vac pump to the home vac pump then.
Vascular [facility]'s changed patient's R groin vac dressing today. Patient has a yeast rash on inner buttock/posterior thigh area. Patient incontinent of urine. Miconazole powder bring used. Left Calazime ointment to use on top of antifungal powder. Gave
patient an air chair cushion. Discharge instructions updated.
[2025-01-29 12:44] LABS: Glucose - Point of Care 112 mg/dl (70-99)
--- NOTE | 2025-01-29 14:35 | W.DS.TRANS ---
DC Summary - Curator
-
Discharge Instructions:
Discharge Diagnosis/Procedures Right groin fat necrosis
Diet Diabetic, Carb Controlled
Activity No strenuous activity
Driving Restrictions No driving
Bathing Restrictions Avoid spraying water directly on the wound
Other Services VN
Instructions:
Stand-Alone Forms:
Changes to Home Medications: No
Discharge Medications:
DC Medications w/original date entered in [facility]
gabapentin 300 mg capsule 300 mg PO BID Pain 12/27/24
glimepiride 2 mg tablet 2 mg PO DAILY Diabetes 12/27/24
metformin 1,000 mg tablet 1,000 mg PO BID Diabetes 12/27/24
montelukast 10 mg tablet 10 mg PO DAILY Allergies 12/27/24
prednisolone acetate (PF) 1 % eye drops,suspension 1 drp RIGHT EYE Q48H Eye Condition 12/27/24
valsartan 40 mg tablet 40 mg PO DAILY Blood Pressure 12/27/24
aspirin 81 mg chewable tablet 81 mg PO DAILY Blood Clot Prevention/Tx 01/08/25
brimonidine 0.2 % eye drops 1 drp RIGHT EYE BID Eye Condition 01/08/25
empagliflozin 25 mg-linagliptin 5 mg tablet (Glyxambi) 1 tab PO DAILY Diabetes 01/08/25
meclizine 12.5 mg tablet 12.5 mg PO TID Neurological Condition 01/08/25
atorvastatin 10 mg tablet 10 mg PO QPM #90 tabs 01/12/25
cilostazol 100 mg tablet 100 mg PO BID 01/24/25
amoxicillin 875 mg-potassium clavulanate 125 mg tablet 1 tab PO BID #20 tabs 01/29/25
doxycycline hyclate 100 mg tablet 100 mg PO BID #20 tabs 01/29/25
Home Medication Changes
Pending Results: No
--- NOTE | 2025-01-29 14:37 | W.PN.ID1 ---
Date of Service
Date of Service: January 29, 2025
Today's Communication
At time of dc, transition to doxycycline 100mg po bid and Augmentin 875mg po bid x 10 more days.
Assessment / Plan
# Post-op R groin wound fat necrosis
Recent R femoral endarterectomy 01/08/25
# Leukocytosis post-op - resolved
# DM2
-����� 01/25/25 s/p R groin I+D,lavage wound vac placement
OR finding subcutaneous fat necrosis , no abscess, no exposed artery, no exposed muscle flap
No OR cx obtained.
- Bcx neg to date.
- Can continue Vanco/zosyn for now.
- At time of dc, transition to doxycycline 100mg po bid and Augmentin 875mg po bid x 10 more days.
Prior to admission:
#Type 2 diabetes
#Diabetic neuropathy
#Hypertension
#Hyperlipidemia
#History of prior MRSA infections per patient
# PAD s/p R Common Femoral Endarterectomy / Profunda Femoral Artery Endarterectomy with Sartorius Muscle Flap Coverage
Chief Complaint
-: Other (Groin wound)
Subjective / Review of Systems
No new complaints.
Vital Signs / Physical Exam
Vital Signs
Vital Signs
Temp Pulse Resp BP Pulse Ox
97.9 F 88 18 150/78 92
01/29/25 08:16 01/29/25 08:16 01/29/25 08:16 01/29/25 08:16 01/29/25 11:00
Physical Exam
Constitutional: No Acute Distress and Comfortable
Cardiovascular: Regular Rate and S1/S2
Pulmonary: Clear
Gastrointestinal: Soft, Non Tender, Non Distended and Normal Bowel Sounds
Extremities: Negative Edema
Wound: Other (Reviewed today's wound photo: R groin large wound clean without necrosis. )
Neurological: AO x 3
Objective Data
Lab Data
Lab Results
01/29/25 05:59
01/29/25 05:59
Estimated Creat Clear 38 ml/min 01/29/25 05:59
Lactic Acid 1.0 mmol/L (0.7-2.0) 01/24/25 21:47
Total Bilirubin 0.6 mg/dl (0.2-1.3) 01/24/25 12:02
AST 22 U/L (14-36) 01/24/25 12:02
ALT 20 U/L (0-35) 01/24/25 12:02
Alkaline Phosphatase 91 U/L (38-126) 01/24/25 12:02
Most recent labs reviewed.
Micro Results:
01/24/25 14:01 Blood Culture - Final
Blood/Venous No Growth - Final Report
01/24/25 14:01 Blood Culture - Final
Blood/Venous No Growth - Final Report
01/26/25 16:15 MRSA Screen - Final
Nose No Methicillin Resistant Staphylococcus aureus isolated.
Imaging:
CT abdomen pelvis angio with and without IV contrast 01/24/2025:
Nonorganized fluid and inflammation in the right groin status post right common femoral and profunda femoris endarterectomies. No CTA evidence for arterial contrast extravasation or pseudoaneurysm.
[2025-01-29 15:03] VITALS: O2SAT 88; O2SAT 89
--- NOTE | 2025-01-29 15:03 | WOUNDNOTE ---
WO RN Note: Patient's daughter Mallory got delayed at work and should be in patient's room around 15:45. t/c [facility] [phone], spoke with Mauro from intake and gave her the vac pump setting ordered which is 125mmhg which is in the
discharge instructions.
[2025-01-29 15:04] VITALS: BP 143/80
--- NOTE | 2025-01-29 15:24 | PN.CDI ---
CDI
- -
CDI:
Physician Documentation Request
Admit Date: 01/24/25 18:07
Dear Doctor,
Patient admitted for groin infection
01/29 Potassium level: 3.3
01/29 Potassium chloride 40 meq PO administered
Based on the above, could you clarify in the progress notes, the appropriate diagnosis, if significant, that supports the above abnormalities and additional evaluation, monitoring and/or treatment rendered:
Hypokalemia
Abnormal lab value insignificant
Other
Use of terms such as suspected, likely, concern for, or probable (associated with a specific diagnosis that is being evaluated, monitored, or treated as if it exists) are acceptable and can be coded in the inpatient setting, when documented at the
time of discharge.
Thank you,
Lulu Blakely RN, BSN
CDI Specialist
Available via [place] text
Please use your independent medical judgment in providing your response.
--- NOTE | 2025-01-29 16:36 | WOUNDNOTE ---
[facility] RN note: Patient for discharge today with VN for wound vac dressing changes. Instructed patient and daughter Mallory how to turn on/off vac pump, clamp/disconnect and reconnect/unclamp vac tubing, how to change the vac canister, how to plug in
vac pump, how to trouble shoot vac alarms. Instructed patient if the vac dressing loses its suction and cannot be fixed within 2 hours, the vac dressing should be removed and a saline gauze dressing applied until VN can apply a new vac dressing.
Instructed patient if jose bleeding occurs, to clamp and disconnect vac tubing and call 911. Patient plans to take home her air chair cushion. Instructed daughter local care for patient's buttocks/thigh yeast rash. Updated RN Aishwarya. Alma Dougherty
from Case management was in at the end of visit. Patient to follow up with vascular surgeon.
--- NOTE | 2025-01-29 16:47 | WOUNDNOTE ---
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 Faxed patient signed ready home vac equipment (serial #[id number]) proof of delivery form to [employer] from [facility].
== END 2025-01-29 17:25 | disposition home health service (06) | DRG 856 ==
LOC: 2 SOUTH 18:07
PROVIDERS: Hospitalist; Physician Assistant; Physician Assistant Medical; Student in an Organized Health Care Education/Training Program; Surgery Vascular Surgery; ADMITTING PHYSICIAN Internal Medicine; ATTENDING PHYSICIAN Hospitalist; CONSULT PHYSICIAN Internal Medicine Infectious Disease; EMERGENCY PHYSICIAN Emergency Medicine; FAMILY PHYSICIAN Family Medicine
PROC: 0YB50ZZ Excision of Right Inguinal Region, Open Approach (ICD-10-PCS; 2025-01-25)
DX: T81.41XA Infection following a procedure, superficial incisional surgical site, initial encounter (principal); A41.9 Sepsis, unspecified organism; R65.20 Severe sepsis without septic shock; E11.52 Type 2 diabetes mellitus with diabetic peripheral angiopathy with gangrene; E87.20 Acidosis, unspecified; E11.42 Type 2 diabetes mellitus with diabetic polyneuropathy; E78.5 Hyperlipidemia, unspecified; I10 Essential (primary) hypertension; J44.9 Chronic obstructive pulmonary disease, unspecified; Z79.82 Long term (current) use of aspirin; Z79.899 Other long term (current) drug therapy; Z87.891 Personal history of nicotine dependence; Y84.8 Other medical procedures as the cause of abnormal reaction of the patient, or of later complication, without mention of misadventure at the time of the procedure
CPT/HCPCS: 11042; 11045; 71046; 74174; 80048; 80053; 80202; 82962; 83605; 83735; 85025; 85027; 86850; 86900; 86901; 87040; 87070; 94640; 97116; 97162; 97608; Q9967